=== PATIENT | male | born 1945 | race Caucasian/White ===

== ENCOUNTER 2016-09-05 20:17 | Inpatient (IN) | payer OTHER, BC ==
--- NOTE | 2016-09-05 20:38 | CPEKG ---
Heart Rate: 132 RR Interval: 455 P-R Interval: 136 QRSD Interval: 88 QT Interval: 332 QTC Interval: 492 P [place]: 269 QRS [place]: -19 T Wave [place]: 93 EKG Severity - ABNORMAL ECG - EKG Impression: ECTOPIC ATRIAL TACHYCARDIA EKG Impression: PROBABLE LVH WITH SECONDARY REPOL ABNRM EKG Impression: BORDERLINE INFERIOR Q WAVES EKG Impression: BORDERLINE PROLONGED QT INTERVAL Electronically Signed By: Hipolito Arzate 05-Sep-2016 23:54:56
[2016-09-05 20:51] LABS: % IMMATURE GRANULYOCYTES 0.9 % (0.0-1.1); ABSOLUTE IMMATURE GRANULOCYTES 0.07 10^3/uL (0.00-0.10); ADD DIFF? NO; ADD MORPH? NO; ADD SCAN? NO; ATYPICAL LYMPHOCYTE FLAG 20 (0-99); FRAGMENT RBC FLAG 0 (0-99); HEMATOCRIT 28.8 % (40.0-51.0); HEMOGLOBIN 9.9 g/dL (13.7-17.5); LEFT SHIFT FLG 10 (0-99); LIPEMIA HEMOLYSIS FLAG 90 (0-99); MEAN CELL HEMOGLOBIN 29.8 pg (27.9-34.1); MEAN CELL HEMOGLOBIN CONCENTR. 34.4 g/dL (32.4-36.7); MEAN CELL VOLUME 86.7 fL (81.5-99.8); MEAN PLATELET VOLUME 9.3 fL (8.7-11.7); PLATELET CLUMPS FLAG 0 (0-99); PLATELET COUNT 159 10^3/uL (150-400); RED BLOOD CELL COUNT 3.32 10^6/uL (4.40-6.38); RED CELL DISTRIBUTION WIDTH 18.7 % (11.5-15.2)
[2016-09-05] MEDS ORDERED: ONDANSETRON 4 MG/2 ML VIAL IVP ONE (20:53)
[2016-09-05] MEDS ORDERED: ONDANSETRON 4 MG/2 ML VIAL ONE (20:54)
[2016-09-05 20:58] LABS: ANION GAP 15 mEq/L (8-16); CALCIUM 8.4 mg/dL (8.5-10.4); CARBON DIOXIDE 18 mEq/l (22-31); CHLORIDE 103 mEq/L (97-110); CREATININE 1.4 mg/dL (0.7-1.3); GLOMERULAR FILTRATION RATE 50; GLUCOSE 221 mg/dL (70-100); POTASSIUM 4.6 mEq/L (3.5-5.2); SODIUM 136 mEq/L (134-144)
[2016-09-05] MEDS ORDERED: NS 1,000 ML IV ONE ×2 (20:58→21:15)
--- NOTE | 2016-09-05 20:58 | EDPHY ---
[id number] Vaccine: Yes Current Tetanus Diphtheria and Acellular Pertussis (TDAP): Yes Tetanus Vaccine Date: less than 1 year ago - Medical/Surgical History Hx Asthma: No Hx Chronic Respiratory Disease: No Hx Diabetes: Yes Hx Cardiac Disease: No Hx Renal Disease: No Hx Cirrhosis: No Hx Alcoholism: No Hx HIV/AIDS: No Hx Splenectomy or Spleen Trauma: No Other PMH: DIABETES, PROSTATE CA>HIP. HAND-ORTHO, L KIDNEY STENT, DDD C6 & mid back, R eye cateract - Social History Smoking Status: Never smoked HPI/ROS: CHIEF COMPLAINT: Weakness, shortness of breath HISTORY OF PRESENT ILLNESS: increasing weakness and shortness of breath over the past 2 days. No chest pain. No cough. No fever. No abdominal complaints. Feeling very weak and having difficulty ambulating short distances. No lower extremity erythema, edema or pain. No history of venous thrombolic event, but the patient does have cancer current therapy for prostate with mets to the hip. Also complaining of left hip pain as he has not had his pain medication this evening. No nausea or vomiting. No fever or chills. No headache or dizziness. No back pain. No urinary complaints. No other associated complaints or modifying factors REVIEW OF SYSTEMS: Ten systems reviewed and are negative unless otherwise noted in the HPI EXAMINATION General Appearance: Alert, acutely ill but in no distress Head: normocephalic, atraumatic Eyes: Pupils equal and round, no conjunctival pallor or injection ENT, Mouth: Mucous membranes moist Neck: Normal inspection, supple, non-tender Respiratory: Lungs are clear to auscultation Cardiovascular: tachycardic rate but regular rhythm Gastrointestinal: Abdomen is soft and nontender Back: non-tender, no bony abnormalities Neurological: A&O, nonfocal, normal gait Skin: Warm and dry, no rash Extremities: mild tenderness to the left hip. No edema. No evidence of DVT. Psychiatric: Mood and affect normal Differential Diagnoses: 1. Sepsis 2. PE 3. pneumonia 4. Bronchitis MDM: 20:57 Shortness of breath with tachycardia and tachypnea and ill-appearing patient. He is in no distress, but he is obviously in pain. He does meet SIRS criteria, thus we have ordered a sepsis workup as well as a CT scan of the chest to rule out PE. There is no hypotension or hypoxia. 21:15 A blood gas was performed immediately, the patient has been taken CT scan and has returned. We are awaiting the report. 21:45 Spoke with the radiologist who informed me that there is no evidence of PE. There is evidence of subacute right-sided rib fractures which the patient has known about for years. There is also a noncalcified right middle lobe nodule, which they also normal. There is also thoracic metastases which they also know about. No acute findings including no pneumonia, pleural effusion or any other acute abnormalities as noted by the radiologist. He remains hemodynamically stable with some improvement of his heart rate with IV fluid and pain medication. He does feel better by his own admission. EKG Rate is 132 beats per minute, sinus tachycardia. No ST depressions or elevations. T-wave inversions only in aVL and AVR. P are 136, QTC 432, normal axis. No acute ischemia. Repeat EKG at 10:36 p.m.. Rate is 72 beats per minute, normal sinus rhythm. P are 152, QTC 452. two is inverted only in AVR and V1. No ST depression or elevation. Borderline inferior Q-waves. No acute ischemia 22:54 patient is feeling better and remains hemodynamically stable but has returned to a tachycardic rate. Upon reexamination of the previous EKGs, it is apparent that the patient is likely in atrial tachycardia without hypotension. He remains awake and alert and conversing appropriately. He also is complaining of persistent left hip pain despite IV pain medication. I have discussed all these findings with the hospitalist, and she will admit the patient to PCU. She does recommend a left hip x-ray which we will order due to the possibility of pathologic fracture. I discussed all this with the patient and his spouse at bedside, and they are comfortable with this plan. X-ray of the hip will be performed in the emergency department prior to admission. (Manan Blum) Constitutional: Initial Vital Signs Temperature (C) 36.1 C 09/05/16 20:20 Heart Rate 134 H 09/05/16 20:20 Respiratory Rate 20 09/05/16 20:20 Blood Pressure 152/93 H 09/05/16 20:20 O2 Sat (%) 99 09/05/16 20:20 O2 Delivery Mode Nasal Cannula O2 (L/minute) 2 Allergies/Adverse Reactions: No Known Allergies Allergy (Unverified 09/05/16 20:22) Home Medications: Medication Instructions Recorded Aspirin [Aspirin 81mg (*)] 81 mg PO HS 11/23/13 Cholecalciferol Vit D3 [Vitamin D3 1,000 units PO DAILY 11/23/13 (*)] Cyanocobalamin [Vitamin B12 (*)] 100 mcg PO DAILY 11/23/13 Degarelix Acetate [Firmagon] 0 mg SQ .[id number] #0 11/23/13 Glucosamine Sulfate [Glucosamine 500 mg PO DAILY 11/23/13 Sulfate 500 MG (*)] Multivitamins [Multivitamin (*)] 1 each PO DAILY 11/23/13 Omeprazole Magnesium [Prilosec Otc] 20 mg PO DAILY 11/23/13 Acetaminophen/Codeine 300/30Mg 1 - 2 each PO Q4 09/06/16 [Tylenol #3 (*)] Amitriptyline HCl [Elavil 50 mg 25 mg PO HS 09/06/16 (*)] Atorvastatin Calcium [Lipitor 40 40 mg PO HS 09/06/16 mg (*)] Enzalutamide [Xtandi] 160 mg PO DAILY 09/06/16 Insulin Glargine [Lantus 100 50 units SC HS 09/06/16 UNITS/ML (*)] Lisinopril [Zestril 5 mg (*)] 5 mg PO HS 09/06/16 Metoprolol Succinate Xr [Toprol Xl 25 mg PO HS 09/06/16 25 mg (*)] Vitamin D Shot 0 mg SQ .[id number] 09/06/16 Medical Decision Making ED Course/Re-evaluation: 2314: I did see and evaluate this patient is resting comfortably. Does have intermittent episodes tachycardia appears to be atrial tachycardia on his EKG. At times he is in the 70s and other times in the 130s. He is hemodynamically stable with no chest pain. He did have an elevated D-dimer greater than 20, his CT angiogram did not show pulmonary embolism. Troponin is negative. He is resting comfortably. He is getting an x-ray of his hip to rule out pathological fracture given ongoing hip pain. Patient be admitted to the hospital for pain control, atrial tachycardia observation. (Hipolito rAzate) - Data Points Laboratory Results: Laboratory Results 09/05/16 20:37 09/05/16 20:37 Medications Given: Discontinued Medications Hydromorphone HCl (Dilaudid) 1 mg IVP EDNOW ONE Stop: 09/05/16 21:39 Last Admin: 09/05/16 21:42 Dose: 1 mg Hydromorphone HCl (Dilaudid) 1 mg IVP EDNOW ONE Stop: 09/05/16 22:34 Last Admin: 09/05/16 22:45 Dose: 1 mg Sodium Chloride (Ns) 1,000 mls @ 0 mls/hr IV ONCE ONE PRN Reason: Wide Open Stop: 09/05/16 20:59 Last Admin: 09/05/16 21:39 Dose: 1,000 mls Sodium Chloride (Ns) 1,000 mls @ 0 mls/hr IV ONCE ONE PRN Reason: Wide Open Stop: 09/05/16 21:16 Last Admin: 09/05/16 21:49 Dose: 1,000 mls Morphine Sulfate (Morphine) 4 mg IVP EDNOW ONE Stop: 09/05/16 20:54 Last Admin: 09/05/16 21:15 Dose: 4 mg Ondansetron HCl (Zofran) 4 mg IVP EDNOW ONE Stop: 09/05/16 20:54 Last Admin: 09/05/16 21:15 Dose: 4 mg Departure - Departure Disposition: [facility] Acute Clinical Impression: Atrial tachycardia, Bony metastasis, Weakness Chronic pain Qualifiers: Chronic pain type: chronic pain syndrome Qualifier Code: (G89.4) Chronic pain syndrome Condition: Fair
[2016-09-05 21:00] LABS: INR 1.19 (0.83-1.16); PROTIME(PATIENT) 15.1 SEC (12.0-15.0)
[2016-09-05 21:09] LABS: TROPONIN I < 0.012 ng/mL (0-0.034)
[2016-09-05] MEDS ORDERED: IOPAMIDOL (ISOVUE 370) 100 ML BTL IV ONE (21:14)
[2016-09-05 21:20] LABS: BILIRUBIN,TOTAL 0.9 mg/dL (0.1-1.4)
[2016-09-05] MEDS ORDERED: HYDROmorphONE/DILAUDID 1 MG/ML SYR ONE (21:38)
[2016-09-05] MEDS ORDERED: HYDROmorphONE/DILAUDID 1 MG/ML SYR IVP ONE ×2 (21:38→22:33)
--- NOTE | 2016-09-05 21:39 | DX ---
PA and Lateral Chest September 05, 2016 Indication: Shortness of breath. Comparison: Portable chest dated November 30, 2013. Findings: The lungs are well-aerated and clear. Heart size is normal. No pneumothorax, pulmonary kristina a, or consolidation. Heart size is normal. No pleural effusion. Mild multilevel degenerative disk dis ease. Impression: Clear lungs. No acute process.
--- NOTE | 2016-09-05 22:07 | CT ---
CT Chest Angiogram - September 05, 2016 Indication: Chest pain. History of prostate cancer. Technique: Thinly collimated multidetector helical CT imaging was performed through the chest while 90 mL of Isovue-370 were injected intravenously without complication. The images were then transferr ed to an independent workstation where multiplanar reconstructions were performed. Dose reduction gary hniques were utilized. Comparison: Two-view chest dated September 05, 2016. Findings: CT Chest Angiogram: The pulmonary arterial system is well opacified. No intraluminal filling defect s to suggest acute or chronic thrombopulmonary embolic disease. The thoracic aorta is normal in miley pratik with minimal calcified plaque. Stigmata of previous open heart surgery consists of intact midline sternal wires and features of coronary artery bypass grafting. CT Chest: The lungs are hypoventilated with mild diffuse peribronchial thickening. No airspace consol idation or edema. A 5-mm noncalcified round pulmonary nodule in the lateral segment right middle lobe is present on image 89 of series 6. No other pulmonary nodule. The heart size is normal. No pericard ial or pleural effusion. Numerous sclerotic bone lesions are present throughout bilateral shoulder girdles, ribs, and diffusel y throughout the thoracic spine. Subacute right 5th, 6th, 7th, 8th, and 9th rib fractures have healin g callus. Minimal compression deformities of the T5 and C6 vertebral bodies appear old or subacute. Impression: 1. No evidence of thrombopulmonary embolic disease. 2. Diffuse sclerotic lesions throughout the shoulder girdles, spine, and ribs are highly suspicious f or metastatic prostate carcinoma. 3. Subacute pathologic right 5th through 9th rib fractures. 4. 5-mm indeterminate noncalcified right middle lobe pulmonary nodule. 5. Mild airways disease. No acute pneumonia or edema. 6. Stigmata of previous coronary artery bypass grafting. Comment: Results were called to Dr. Manan Blum, at 9:55 p.m. on September 05, 2016.
--- NOTE | 2016-09-05 22:38 | CPEKG ---
Heart Rate: 72 RR Interval: 833 P-R Interval: 152 QRSD Interval: 96 QT Interval: 452 QTC Interval: 495 P [place]: 69 QRS [place]: 0 T Wave [place]: 74 EKG Severity - ABNORMAL ECG - EKG Impression: SINUS RHYTHM EKG Impression: PROBABLE LEFT ATRIAL ABNORMALITY EKG Impression: BORDERLINE INFERIOR Q WAVES EKG Impression: BORDERLINE R WAVE PROGRESSION, ANTERIOR LEADS EKG Impression: BORDERLINE PROLONGED QT INTERVAL Electronically Signed By: Hipolito Arzate 05-Sep-2016 23:54:56
--- NOTE | 2016-09-05 23:53 | DX ---
Right Hip, Two Views September 05, 2016 Indication: Pain. History of prostate cancer. Technique: AP and frog-leg lateral views. Comparison: Left hip series dated November 17, 2012. Findings: Numerous round sclerotic lesions have developed throughout the pelvis and bilateral proxima l femurs since November 2012. No pathologic fracture. Minimal symmetric hip osteoarthritis has not signi ficantly changed. Impression: 1. New diffuse sclerotic bone disease, likely metastatic prostate adenocarcinoma. 2. No evidence of pathologic fracture.
[2016-09-06] MEDS ORDERED: HYDROmorphONE/DILAUDID 1 MG/ML SYR IVP PRN (02:40)
[2016-09-06] MEDS ORDERED: ONDANSETRON DISINTEGRATING 4 MG TAB PO PRN (02:40)
[2016-09-06] MEDS ORDERED: ONDANSETRON 4 MG/2 ML VIAL IVP PRN (02:40)
[2016-09-06] MEDS: HYDROCODONE/APAP 5/325 TAB PO PRN ×3 (04:11→11:53)
[2016-09-06 05:02] LABS: % IMMATURE GRANULYOCYTES 0.8 % (0.0-1.1); ABSOLUTE IMMATURE GRANULOCYTES 0.05 10^3/uL (0.00-0.10); ADD DIFF? NO; ADD MORPH? NO; ADD SCAN? NO; ATYPICAL LYMPHOCYTE FLAG 10 (0-99); FRAGMENT RBC FLAG 0 (0-99); HEMATOCRIT 24.3 % (40.0-51.0); HEMOGLOBIN 8.2 g/dL (13.7-17.5); LEFT SHIFT FLG 10 (0-99); LIPEMIA HEMOLYSIS FLAG 80 (0-99); MEAN CELL HEMOGLOBIN 30.4 pg (27.9-34.1); MEAN CELL HEMOGLOBIN CONCENTR. 33.7 g/dL (32.4-36.7); MEAN PLATELET VOLUME 9.4 fL (8.7-11.7); PLATELET CLUMPS FLAG 0 (0-99); PLATELET COUNT 122 10^3/uL (150-400); RED CELL DISTRIBUTION WIDTH 18.9 % (11.5-15.2)
[2016-09-06 05:19] LABS: ANION GAP 8 mEq/L (8-16); CALCIUM 7.6 mg/dL (8.5-10.4); CARBON DIOXIDE 23 mEq/l (22-31); CHLORIDE 108 mEq/L (97-110); CREATININE 1.3 mg/dL (0.7-1.3); GLOMERULAR FILTRATION RATE 55; GLUCOSE 117 mg/dL (70-100); MAGNESIUM 1.9 mg/dL (1.6-2.3); SODIUM 139 mEq/L (134-144)
[2016-09-06 05:27] LABS: TROPONIN I 0.019 ng/mL (0-0.034)
--- NOTE | 2016-09-06 06:47 | PDGENHP ---
History and Physical - Chief Complaint l hip pain - History of Present Illness Patient is a 71-year-old man with a history of CAD s/p CABG, DM 2 on insulin, prostate cancer with bony mets who presents to the ED complaining of generalized weakness and fatigue over the past 6 weeks and increased pain at the left hip. In May patient was initiated on chemo or radiation therapy for treatment of his metastatic prostate cancer. Since then patient has had increased fatigue and generalized weakness. In mid July he began experiencing increasing left hip pain, was initiated on Tylenol # 3 for this, but patient states presents today complaining of increased pain not improved with this. In addition he is complaining of constipation due to the T#3. With these symptoms patient is also reporting increasing dyspnea with movement or exertion, he states at baseline he had been able to walk around his neighborhood , but now feels short of breath walking within his home. He is not sure if this is due to increase in pain or underlying lung/cardiac disease. He reports prior history of congestive heart failure, but this had resolved with medical management after his CABG surgery in 2013. He denies any obvious fevers, chills , cough, congestion or nausea, vomiting. On the day of presentation patient states was walking around his apartment and slipped and tripped on his dogs bed, landing on his left side onto the mattress of of the bed. He did not hit his head and was able to get up without difficulty. On arrival to the ED patient was afebrile hemodynamically stable. Labs revealed no leukocytosis, mild anemia, elevated BUN and creatinine and negative troponin. CT angio chest was obtained to rule out P, was negative for PE. X- ray of the to left hip was obtained, revealed bony sclerosis consistent with metastatic disease, but no acute pathologic fracture. While being evaluated in the ED patient became tachycardic, EKG reveals an atrial tachycardia. This returned to sinus rhythm without intervention. History Information - Allergies/Home Medication List Allergies/Adverse Reactions: No Known Allergies Allergy (Unverified 09/05/16 20:22) Home Medications: Acetaminophen with Codeine [Tylenol #4 (RX)] 1 tab PO HS 11/23/13 [Last Taken ] Amitriptyline HCl [Elavil] 25 mg PO HS 11/23/13 [Last Taken 11/21/13] Aspirin [Aspirin 81mg (*)] 81 mg PO HS 11/23/13 [Last Taken 11/22/13] Cholecalciferol Vit D3 [Vitamin D3 (*)] 1,000 units PO DAILY 11/23/13 [Last Taken 11/22/13 08:00] Cyanocobalamin [Vitamin B12 (*)] 100 mcg PO DAILY 11/23/13 [Last Taken 11/22/13 08:00] Glucosamine Sulfate [Glucosamine Sulfate 500 MG (*)] 500 mg PO DAILY 11/23/13 [ Last Taken 11/22/13 08:00] Lupron Injection 1 saji SQ .[id number] 11/23/13 [Last Taken 10/04/13] Multivitamins [Multivitamin (*)] 1 each PO DAILY 11/23/13 [Last Taken 11/22/13 08:00] Naproxen Sodium [Aleve 220 MG (*)] 220 mg PO DAILY 11/23/13 [Last Taken 08:00] [place]-3 Fatty Acids [Fish Oil 1000 mg (*)] 1,000 mg PO DAILY 11/23/13 [Last Taken 11/22/13 08:00] Omeprazole Magnesium [Prilosec Otc] 20 mg PO DAILY 11/23/13 [Last Taken 08:00] I have personally reviewed and updated: family history, medical history, social history, surgical history - Past Medical History Additional medical history: CAD s/p 3 vessel CABG 2013. Prostate cancer with bony mets, recently initiated on chemo/radiation therapy. DM type 2 on insulin - Surgical History Additional surgical history: CABG. partial prostate resection. finger injury repair. 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 Lives with his , splits time between [place] and [place] (where pt is originally from) Review of Systems ROS: 10pt was reviewed & negative except for what was stated in HPI & below Physical Exam Temp Pulse Resp BP Pulse Ox 36.7 C 68 16 123/64 H 95 09/06/16 04:00 09/06/16 04:00 09/06/16 04:00 09/06/16 04:00 09/06/16 04:00 O2 (L/minute) 2 Constitutional: no apparent distress, appears nourished, not in pain Eyes: PERRL, anicteric sclera, EOMI Ears, Nose, Mouth, Throat: moist mucous membranes, hearing normal, ears appear normal, no oral mucosal ulcers Cardiovascular: regular rate and rhythym, no murmur, rub, or gallop, pulses symmetric bilaterally, No JVD, No edema Peripheral Pulses: 2+: dorsalis-pedis (R), dorsalis-pedis (L) Respiratory: no respiratory distress, no rales or rhonchi, clear to auscultation Gastrointestinal: normoactive bowel sounds, soft, non-tender abdomen, no palpable masses Genitourinary: no bladder fullness, no bladder tenderness Skin: warm, normal color, no rashes or abrasions, no fluctuance, No mottled Musculoskeletal: full muscle strength, no muscle tenderness, pain with ROM (L hip) Neurologic: AAOx3, sensation intact bilaterally, CN II-XII Intact, No weakness, No numbness Psychiatric: interacting appropriately, not anxious, not encephalopathic, thought process linear Lab Data & Imaging Review 09/06/16 04:09 09/06/16 04:09 WBC 6.47 10^3/uL (3.80-9.50) 09/06/16 04:09 RBC 2.70 10^6/uL (4.40-6.38) L 09/06/16 04:09 Hgb 8.2 g/dL (13.7-17.5) L 09/06/16 04:09 Hct 24.3 % (40.0-51.0) L 09/06/16 04:09 MCV 90.0 fL (81.5-99.8) 09/06/16 04:09 MCH 30.4 pg (27.9-34.1) 09/06/16 04:09 MCHC 33.7 g/dL (32.4-36.7) 09/06/16 04:09 RDW 18.9 % (11.5-15.2) H 09/06/16 04:09 Plt Count 122 10^3/uL (150-400) L 09/06/16 04:09 MPV 9.4 fL (8.7-11.7) 09/06/16 04:09 Neut % (Auto) 73.7 % (39.3-74.2) 09/06/16 04:09 Lymph % (Auto) 13.0 % (15.0-45.0) L 09/06/16 04:09 Power % (Auto) 11.0 % (4.5-13.0) 09/06/16 04:09 Eos % (Auto) 1.2 % (0.6-7.6) 09/06/16 04:09 Baso % (Auto) 0.3 % (0.3-1.7) 09/06/16 04:09 Nucleat RBC Rel Count 0.0 % (0.0-0.2) 09/06/16 04:09 Absolute Neuts (auto) 4.77 10^3/uL (1.70-6.50) 09/06/16 04:09 Absolute Lymphs (auto) 0.84 10^3/uL (1.00-3.00) L 09/06/16 04:09 Absolute Monos (auto) 0.71 10^3/uL (0.30-0.80) 09/06/16 04:09 Absolute Eos (auto) 0.08 10^3/uL (0.03-0.40) 09/06/16 04:09 Absolute Basos (auto) 0.02 10^3/uL (0.02-0.10) 09/06/16 04:09 Absolute Nucleated RBC 0.00 10^3/uL (0-0.01) 09/06/16 04:09 Immature Gran % 0.8 % (0.0-1.1) 09/06/16 04:09 Immature Gran # 0.05 10^3/uL (0.00-0.10) 09/06/16 04:09 PT 15.1 SEC (12.0-15.0) H 09/05/16 20:37 INR 1.19 (0.83-1.16) H 09/05/16 20:37 APTT 31.0 SEC (23.0-38.0) 09/05/16 20:37 D-Dimer > 20.00 ug/mLFEU (0.00-0.50) H 09/05/16 20:37 VBG Lactic Acid 1.6 mmol/L (0.7-2.1) 09/05/16 20:37 Sodium 139 mEq/L (134-144) 09/06/16 04:09 Potassium 5.0 mEq/L (3.5-5.2) 09/06/16 04:09 Chloride 108 mEq/L (97-110) 09/06/16 04:09 Carbon Dioxide 23 mEq/l (22-31) 09/06/16 04:09 Anion Gap 8 mEq/L (8-16) 09/06/16 04:09 BUN 26 mg/dL (7-23) H 09/06/16 04:09 Creatinine 1.3 mg/dL (0.7-1.3) 09/06/16 04:09 Estimated GFR 55 09/06/16 04:09 Glucose 117 mg/dL (70-100) H 09/06/16 04:09 Calcium 7.6 mg/dL (8.5-10.4) L 09/06/16 04:09 Magnesium 1.9 mg/dL (1.6-2.3) 09/06/16 04:09 Total Bilirubin 0.9 mg/dL (0.1-1.4) 09/05/16 20:37 Troponin I 0.019 ng/mL (0-0.034) 09/06/16 04:09 NT-Pro-B Natriuret Pep 2350 pg/mL (0-125) H 09/06/16 04:09 TSH 1.310 uIU/mL (0.465-4.680) 09/06/16 04:09 Influenza Typ A,B (DFA) NEGATIVE FOR FLU (NEGATIVE) 09/05/16 21:18 Visualized and Interpreted Chest x-ray results: Yes Chest X-Ray results: no infiltrate, normal Visualized and Interpreted imaging results: Yes Interpretation: Ct angio chest: multiple scattered areas of bony sclerosis c/w metastatic disease; neg for pulmonary embolis. L hip x-ray: no acute fracture, sclerosis Visualized and Interpreted EKG results: Yes EKG additional interpertation: First: Atrial tachycardia at 132 beats per minute; no obvious ST T wave changes. Repeat: Normal sinus rhythm, poor R- wave progression, no ST T wave changes Assessment & Plan Assessment: Patient is a 71-year-old male with history of CAD, dm 2, metastatic prostate cancer who presents to the ED with increasing generalized fatigued, dyspnea and pain. Plan: # generalized fatigue and increasing dyspnea on exertion Could be related to recent initiation on chemo/radiation therapy in May of 2016. Given patient's prior cardiac history will also rule out cardiac etiology including new onset CHF or ischemia. CT angio has ruled out pulmonary embolism. - trend troponins, repeat ekgs - check TTE to r/o CHF # atrial tachycardia Pt denies any prior history of SVT/arrhythmia. Appears when patient is in acute pain, will control pain and consider cardiology consult. No indication to start rate controlling med at this time, at patient largely rate controlled, when pain is controlled. # prostate ca with bony mets, in acute pain Patient with extensive bony metastatic prostate cancer. Pain not responding to Tylenol 3 at home. Imaging have ruled out acute fractures, will cont with pain control and also initiate standing bowel regimen. - norco, dilaudid prn - standing senna/colace/miralax # DM2 Normal glucose on presentation, will confirm and cont home insulin regimen. Lispro sliding scale coverage # CAD Pt denies chest pain, no evidence of ischemia on EKG and initial trop is negative. Will r/o ACS and cont home med regimen. # dispo: admit to inpt service for > 2 [place] stay # gen: cardiac diet DVT ppx: lovenox Full code
[2016-09-06] MEDS: ENOXAPARIN 40 MG/0.4 ML SYR SC SCH (09:17)
--- NOTE | 2016-09-06 11:28 | ECHO ---
[id number] + + [id number] : : [place] [address] : : [phone] + Adult Echocardiographic Report + -------+ :Name: INGRAM TESS PStudy Date: 09/06/2016 08:14 AM : : Hospital Admission Number: [id number] Locati on: 210: :: 1945 Gender: Male Height: 73 in : :Age: 71 yrs Race: WH Weight: 213 lb : :Reason For Study: increasing dyspnea on exertion : : BSA: 2.2 meter s2 : :History: Hx of Bipass : + -------+ MMode/2D Measurements & Calculations IVSd: 1.5 cm LVIDd: 5.1 cm FS: 31.7 % LVOT diam: 2.2 cm LVPWd: 1.4 cm LVIDs: 3.5 cm EDV(Teich): 125.4 ml LVOT area: 3.6 cm2 ESV(Teich): 51.0 ml EF(Teich): 59.4 % Normal Measurement Values: + + :LVIDd (3.5-5.7cm) IVSd (0.6-1.1cm) LVPWd (0.6-1.1cm) Aortic Root (2.0-3.7cm)Left Atrium (1.5-4.0cm): :LV Vol(d) (76-115ml) LV Vol(s) (29-48ml) Ejec Fraction (50-65%)PV Wilmar (0.6- 1.2m/s) TV Wilmar (0.4-1.0m/s) : :MV E Wilmar (0.8-1.0m/s)MV A Wilmar (0.3-1.0m/s)LVOT Iwlmar (0.7-1.2m/s) Asc Ao Wilmar ( 0.9-1.8m/s) : + + Doppler Measurements & Calculations MV E max wilmar: MV V2 max: Ao mean PG: LV V1 mean P.6 cm/sec 118.8 cm/sec 5.4 mmHg 1.7 mmHg MV A max wilmar: MV max PG: Ao V2 mean: LV V1 mean: 107.6 cm/sec 5.6 mmHg 107.1 cm/sec 60.1 cm/sec MV E/A: 1.0 MV V2 mean: Ao V2 VTI: 34.7 cm LV V1 VTI: 20.7 cm MV dec time: 75.4 cm/sec DAVID(I,D): 2.2 cm2 0.16 sec MV mean P.5 mmHg MV V2 VTI: 44.9 cm MVA(VTI): 1.7 cm2 SV(LVOT): 75.6 ml PA V2 max: TR max wilmar: 114.0 cm/sec 199.1 cm/sec PA max PG: TR max P.2 mmHg 15.9 mmHg RAP systole: 10.0 mmHg RVSP(TR): 25.9 mmHg Left Ventricle The left ventricle is normal in size. There is mild concentric left ventricular hypertrophy. Left ventricular systolic function is low normal. Ejection Fraction = 50-55%. Right Ventricle The right ventricle is normal in size and function. Atria The left atrium is mildly dilated. Right atrium not well visualized. Mitral Valve The mitral valve is normal in structure and function. There is no mitral valve stenosis. There is trace mitral regurgitation. Tricuspid Valve The tricuspid valve is normal in structure and function. There is no tricuspid stenosis. There is trace tricuspid regurgitation. Right ventricular systolic pressure is normal. Aortic Valve The aortic valve is normal in structure and function. There is no aortic stenosis. There is no aortic insufficiency. Pulmonic Valve The pulmonic valve is normal in structure and function. There is no pulmonic valvular stenosis. Trace pulmonic valvular regurgitation. Great Vessels The aortic root is normal size. Pericardium/Pleural There is a fat pad seen. trivial pericardial effusion. Conclusion A complete two-dimensional transthoracic echocardiogram was performed (2D, M-mode, Doppler and color flow Doppler). The study was technically difficult. Left ventricular systolic function is low normal. Ejection Fraction = 50-55%. There is mild concentric left ventricular hypertrophy. The left atrium is mildly dilated. Right atrium not well visualized. There is trace mitral regurgitation. There is trace tricuspid regurgitation. Right ventricular systolic pressure is normal. The aortic valve is normal in structure and function. Trace pulmonic valvular regurgitation. trivial pericardial effusion. Compared with 11/23/2013, LVEF has improved. Regional wall motion abnormality not appreciated on current study Final Reading Physician: Dr Amy Ardon electronically signed on 09/06/2016 11:27 AM Ordering Physician: Marlena Eli Performed By: Irma Orta
[2016-09-06] MEDS: ACETAMINOPHEN 325 MG TAB PO PRN (13:27)
[2016-09-06] MEDS: Enzalutamide [Xtandi] 160 MG PO SCH (15:41)
[2016-09-06] MEDS: morphINE SR 15 MG TAB PO SCH ×2 (15:41→19:57)
--- NOTE | 2016-09-06 15:49 | HOSPPROG ---
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 no atrial tach (interp by me). cxr: no chf (interp by me) Objective: Vital Signs Temp Pulse Resp BP Pulse Ox 36.5 C 60 16 133/57 H 98 09/06/16 12:23 09/06/16 12:23 09/06/16 12:23 09/06/16 12:23 09/06/16 12:23 Laboratory Results 09/06/16 04:09 09/06/16 04:09 09/05/16 09/06/16 09/07/16 05:59 05:59 05:59 Intake Total 2200 Balance 2200 PT 15.1 SEC (12.0-15.0) H 09/05/16 20:37 INR 1.19 (0.83-1.16) H 09/05/16 20:37 - Physical Exam Constitutional: no apparent distress, appears nourished Eyes: PERRL, anicteric sclera Ears, Nose, Mouth, Throat: moist mucous membranes, hearing normal Cardiovascular: regular rate and rhythym, no murmur, rub, or gallop Respiratory: no respiratory distress, no rales or rhonchi Gastrointestinal: normoactive bowel sounds, soft, non-tender abdomen Genitourinary: No whitaker in urethra Skin: warm, normal color Musculoskeletal: full muscle strength, no muscle tenderness Neurologic: AAOx3 ICD10 Worksheet Patient Problems: Problems Problem Status Diagnosed Acute CHF Acute CAD (coronary artery disease) Acute Chronic Disease Mgmt/Transitional Care Acute Diabetes mellitus type II, uncontrolled Acute NSTEMI (non-ST elevated myocardial infarction) Acute
[2016-09-06] MEDS: POLYETHYLENE GLYCOL 3350 17 GM PKT PO SCH (17:41)
[2016-09-06] MEDS: ASPIRIN 81 MG CHEWABLE TAB PO SCH (19:57)
[2016-09-06] MEDS: LISINOPRIL 5 MG TAB PO SCH (19:58)
[2016-09-06] MEDS: ATORVASTATIN CALCIUM 40 MG TAB PO SCH (19:58)
[2016-09-06] MEDS: INSULIN GLARGINE 100 UNITS/ML SYRINGE SC SCH (20:00)
[2016-09-06] MEDS ORDERED: AMITRIPTYLINE HCL 50 MG TAB PO SCH (21:00)
[2016-09-06] MEDS ORDERED: METOPROLOL SUCCINATE XR 25 MG TAB PO SCH (21:00)
[2016-09-07] MEDS: ENOXAPARIN 40 MG/0.4 ML SYR SC SCH (09:21)
[2016-09-07] MEDS: POLYETHYLENE GLYCOL 3350 17 GM PKT PO SCH (09:28)
[2016-09-07] MEDS: CYANO/VITAMIN B12 100 MCG TAB PO SCH (09:29)
[2016-09-07] MEDS: Enzalutamide [Xtandi] 160 MG PO SCH (09:29)
[2016-09-07] MEDS: MULTIVITAMINS 1 EACH TAB PO SCH (09:29)
[2016-09-07] MEDS: GLUCOSAMINE SULF 500 MG CAP PO SCH (09:29)
[2016-09-07] MEDS: CHOLECALCIFEROL VIT D3 1,000 UNITS TAB PO SCH (09:29)
[2016-09-07] MEDS: PANTOPRAZOLE SODIUM 40 MG TAB PO SCH (09:29)
[2016-09-07] MEDS: morphINE SR 15 MG TAB PO SCH ×2 (09:34→20:35)
[2016-09-07] MEDS: HYDROCODONE/APAP 5/325 TAB PO PRN ×2 (09:36→13:27)
--- NOTE | 2016-09-07 11:37 | HOSPPROG ---
Hospitalist Progress Note Assessment/Plan: 71 yo M w cad, prostate CA w bony mets admitted w pain, brief run of atrial tachycardia atrial tachycardia: having episodes on monitor increase bb to 50 hs no indication for anticoag incontinence: concerning for metastatic disease MR L spine today check UA pain: start ms contin w msir for breakthrough discussed risks/benefits of residential anticoag DM: continue lantus cad: neg trop proph: add lmwh dispo: inpt Subjective: multiple episodes symptomless urinary incontinence last clarissa. notes an episode of fecal incontinence last week. tele: atrial tachycardia (interp by me). case d/w dr hensley Objective: Vital Signs Temp Pulse Resp BP Pulse Ox 36.8 C 71 12 163/71 H 93 09/07/16 08:00 09/07/16 08:00 09/07/16 08:00 09/07/16 08:00 09/07/16 08:00 Laboratory Results 09/06/16 04:09 09/06/16 04:09 09/06/16 09/07/16 09/08/16 05:59 05:59 05:59 Intake Total 2200 1070 Balance 2200 1070 PT 15.1 SEC (12.0-15.0) H 09/05/16 20:37 INR 1.19 (0.83-1.16) H 09/05/16 20:37 - Physical Exam Constitutional: no apparent distress, appears nourished Eyes: PERRL, anicteric sclera Ears, Nose, Mouth, Throat: moist mucous membranes, hearing normal Cardiovascular: regular rate and rhythym, no murmur, rub, or gallop Respiratory: no respiratory distress Gastrointestinal: normoactive bowel sounds, soft, non-tender abdomen Genitourinary: No whitaker in urethra Skin: warm, normal color Musculoskeletal: full muscle strength Neurologic: AAOx3 ICD10 Worksheet Patient Problems: Problems Problem Status Diagnosed Atrial tachycardia Acute Bony metastasis Acute Chronic pain Acute Generalized weakness Acute Acute CHF Acute CAD (coronary artery disease) Acute Chronic Disease Mgmt/Transitional Care Acute Diabetes mellitus type II, uncontrolled Acute NSTEMI (non-ST elevated myocardial infarction) Acute
[2016-09-07] MEDS ORDERED: METOPROLOL SUCCINATE XR 25 MG TAB PO SCH (11:43)
[2016-09-07 13:05] LABS: COLOR YELLOW; LEUKOCYTE ESTERASE,URINE NEGATIVE (NEGATIVE); NITRITE,URINE NEGATIVE (NEGATIVE)
--- NOTE | 2016-09-07 16:44 | MR ---
MRI Pelvis, Without and With IV Contrast September 07, 2016 Indication: 71-year-old man with metastatic prostate adenocarcinoma. Evaluate extent of metastatic di sease. Technique: Coronal, sagittal, and axial T2 fat-suppressed, axial, coronal, and sagittal T1, and postc ontrast imaging consists of axial T1 fat-suppressed and coronal T1. 10 mL Gadavist were uneventfully intravenously administered. Comparison: Two-view right hip dated September 05, 2016. Findings: Extensive bone marrow replacing metastatic disease is present throughout the entire sacrum, visualized portion of bilateral iliac wings, and bilateral femoral heads and necks. Metastatic disea se has decreased heterogeneous signal on T1 and heterogeneous, hypervascular enhancement on the postc ontrast imaging. Bilateral nondisplaced sacral fractures course through the anterior cortex superiorl y. The right sacral fracture is best demonstrated on images 9 through 11 of coronal series 13 and the left sacral fracture is best demonstrated on images 5 through 7 of the coronal sequences. No patholo gic fractures through the imaged portions of the iliac wings or femoral necks. Enhancing epidural soft tissue in the central canal posterior to the S1 vertebral body, measuring 2.5 cm craniocaudal x 2.8 x 1 cm axially, results in severe central canal narrowing and extends laterall y through bilateral S1 neural foramen. Eccentric epidural soft tissue slightly more superior, posteri or to the L5 vertebral body extends out the left L5-S1 neural foramen. The posterior wall of the urinary bladder toward the base has mild irregular nodular enhancement whic h extends inferiorly into the prostatectomy bed. Enhancing soft tissue is best demonstrated on images 12 through 17 of the axial T1 postcontrast sequence. A 7 mm round enhancing lymph node is present in the presacral fat on image 15 of the axial T1 post. The axial T2 fat-suppressed imaging reveals mild edema throughout bilateral piriformis, bilateral glu teus medius, and the left gluteus monie muscle groups. No muscle tear or intramuscular fluid collec tion. Small bilateral hip effusions are present. Impression: 1. Extensive metastatic disease throughout the sacrum, imaged portion of the iliac wings, and bilater al femoral necks. 2. Bilateral sacral insufficiency/pathologic fractures. 3. Epidural soft tissue disease resulting in moderate severe central canal narrowing at the S1 level and mild narrowing of the left L5-S1 neural foramen. 4. Suspect local recurrence of prostate adenocarcinoma in the prostatectomy bed involving the posteri or base of the bladder wall.
--- NOTE | 2016-09-07 16:56 | MR ---
MRI Lumbar Spine, Without and With IV Contrast September 07, 2016 Indication: 71-year-old man with incontinence. Suspect cauda equina syndrome. Evaluate extent of meta static prostate adenocarcinoma. Technique: Sagittal T2, T1, and T1 postcontrast with fat suppression, coronal T2, and axial T2, T1, a nd T1 postcontrast. 10 mL of Gadavist were uneventfully intravenously administered. Comparison: MRI of the pelvis performed same time. Findings: Diffusely abnormal bone marrow signal is present throughout the lumbar spine evidenced by l oss of normal T1 hyperintense signal, heterogeneous T2 signal, and diffuse heterogeneous postcontrast enhancement of the vertebral bodies and posterior elements. No acute compression fracture. The conus medullaris resides at T12-L1. No abnormal enhancement of the conus or the leptomeninges. Th e spinal canal is capacious from T11-T12 to the L5 level. Enhancing epidural soft tissue in the spinal canal posterior to the S1 segment, measuring 2.5 cm cran iocaudal x 2.8 x 1.2 cm axially, results in severe central canal narrowing. The enhancing soft tissue extends out bilateral S1 neural foramina and may be contributing to patient's incontinence. Small se cond focus of enhancing epidural soft tissue posterior to the L5 vertebral body courses laterally out the left L5-S1 neural foramen. No acute disk herniation at any level. Mild central canal narrowing is present at T12-L1, L1-L2, L2-L 3, L3-L4 due to diffuse mild disk bulge and facet hypertrophy. Moderate central canal narrowing is present at L4-L5 due to grade 1 anterolisthesis of L4 on L5 and m inimal diffuse disk bulge and facet hypertrophy. Moderate bilateral neural foraminal stenosis is due to facet spurs and grade 1 spondylolisthesis at this level. The coronal T2-weighted imaging reveals severe atrophy of the left kidney and hypertrophy of the righ t kidney. Bilateral ureters are normal caliber. No retroperitoneal mass. The urinary bladder is moder ately distended. Impression: 1. Diffuse metastatic disease throughout the lumbar spine. 2. Severe central canal narrowing at the S1 level due to enhancing epidural soft tissue may be etiolo gy for cauda equina syndrome. The enhancing soft tissue extends out bilateral S1 neural foramina obsc uring the exiting nerve roots. 3. Moderate narrowing of the left L5-S1 neural foramen due to epidural soft tissue at this level. 4. Otherwise widely patent central canal. No involvement of the conus medullaris. 5. No acute compression fracture. 6. Moderate bilateral neural foraminal stenosis at L4-L5 due to facet hypertrophy and grade 1 spondyl olisthesis. Comment: The results were discussed with Dr. Ki Oliver at 4:45 p.m. on September 07, 2016.
--- NOTE | 2016-09-07 18:44 | GCON ---
[f rep st] CONSULTATION CHIEF COMPLAINT: 1. Left hip pain. 2. Metastatic prostate cancer diagnosed in 2011. 3. Lumbar stenosis with 2-day history of urinary incontinence. HISTORY OF PRESENT ILLNESS: The patient is a 71-year-old male with a history of coronary artery disease who had a CABG x3. He has history of diabetes type 2. He is on insulin. He has a history of prostate cancer with widespread metastatic disease that was diagnosed in 2011. He originally was seen back in 2011 with hip pain and did have radiation associated with this. He presented to the emergency department on 09/06/2016 complaining of generalized weakness and fatigue over the past 6 weeks, increasing left hip pain. In May, the patient was initiated on chemo or radiation therapy for treatment of his metastatic prostate cancer. Since then, the patient had increased fatigue, general weakness. In mid July, he began experiencing increasing left hip pain. He was started on Tylenol No. 3 for this. The pain has persisted and worsened since then. He has had an approximately 2-day course of urinary incontinence. He did have some constipation initially due to the Tylenol No. 3. The patient has reported some increasing dyspnea with movement or exertion. He is not sure if this was due to the increase in pain or the underlying lung and cardiac disease history that he has. He does report a prior history of congestive heart failure. This improved after medical management after his CABG surgery in 2013. He denies any recent falls other than one when he was walking around his apartment and slipped and tripped on his dog's bed, landing on the left side of the mattress of the bed. He did not hit his head or have any upper or lower extremity complaints at that time. He does state he has some urinary incontinence. No bowel incontinence. PAST MEDICAL AND SURGICAL HISTORY: 1. Coronary artery disease, status post 3-vessel CABG in 2013. 2. Prostate cancer with bony mets with chemoradiation therapy history. 3. Diabetes type 2, on insulin. 4. Partial prostate resection, cryotherapy. 5. Finger injury repair. 6. Cataract repair bilaterally. MEDICATIONS PRIOR TO ADMISSION: Tylenol with codeine, Elavil, aspirin, vitamin D3, vitamin B12, glucosamine, Lupron, multivitamin, Aleve, fish oil, and Prilosec. ALLERGIES: No known drug allergies. FAMILY HISTORY: 1. Positive for a brother with coronary artery disease. He had a bypass surgery. 2. Alzheimer's. 3. CVA history. SOCIAL HISTORY: Patient has smoked, but in the 60s, and has quit since then. He is . He has no children. He lives in [place], [place], but does have a home that he frequents up here in [place], [place]. He denies any alcohol use. Denies any illicit drug use. REVIEW OF SYSTEMS: Complete review of systems done in conjunction with the above notable for the following. No headache, no diplopia, no blurred vision, no loss of visual field. No hearing loss, tinnitus or vertigo. PULMONARY: The patient denies any cough. Some mild shortness of breath. CARDIAC: No chest pain or pressure. GI: No recent weight loss or gain. No nausea, vomiting, or diarrhea. : No dysuria, hematuria, nocturia, urgency. Does have some incontinence. No frequency. PSYCHIATRIC: No suicidality or homicidality. PHYSICAL EXAMINATION: GENERAL: This is an awake, alert, oriented male, in no acute distress. VITAL SIGNS: Most recent vital signs: Blood pressure 158/62 with a MAP of 94, 21 respiratory rate, 91% on room air. Temperature 36.7. HEENT: Head is normocephalic, atraumatic. Pupils are equal, round, reactive to light. EOMI intact. Full visual gee by confrontation. Ears are patent. Nose is patent. NECK: Soft, supple. No midline tenderness. Full range of motion in flexion, extension, lateral bending, rotation. RESPIRATORY/CARDIAC: Deferred. ABDOMEN: Soft, nontender. No peritoneal signs. RECTAL: The patient denies any numbness or tingling but does state some sensation of burning to the perianal area. Does have poor rectal tone/some numbness. NEURO : Patient is awake, alert, oriented to name, place, location, date, time, and situation. Memory is intact to immediate, past, and current events. Speech: No aphasia, dysarthria, dysphonia. Cranial nerves 2-12 grossly intact. 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 Sensation is grossly intact to upper and lower extremities. Negative straight leg raise. Negative PAULA test. Reflexes of biceps, triceps, brachioradialis, knee jerk, and ankle jerk are 2+/4. Toes are downgoing bilaterally. Gonzalez's negative. Babinski negative. No evidence of clonus. MEDICAL DECISION MAKING/DIAGNOSTIC STUDIES: Laboratory tests obtained 2016 show a white count of 6.47 with an H and H of 8.2 and 24.3. Platelet count of 122. Coags on 09/05/2016 show a PT of 15.1, INR of 1.19, PTT of 31.0, and D-dimer greater than 20. VBG lactic acid was 1.6. Chemistry on 09/06/2016 : Sodium of 139, potassium 5.0, chloride 108, CO2 of 23, BUN 26, creatinine 1.3 , and a glucose of 117. Urine was negative. Influenza was negative. The lumbar spine MRI obtained 09/07/2016 at 11:32 shows diffuse metastatic disease throughout the lumbar spine. The patient has severe central canal narrowing at the S1 level due to an enhancing epidural soft tissue mass which may be the etiology for the cauda equina syndrome. Enhancing soft tissue extends out bilaterally with S1 neural foramen obscuring the exiting nerve roots. Moderate narrowing of the left L5-S1 neural foramen due to the epidural soft tissue at this level. The patient does have a widely patent central canal. No involvement of the conus. Moderate bilateral neural foraminal stenosis L4-5 due to facet hypertrophy and a grade 1 spondylolisthesis. IMPRESSION: 1. Left hip pain. 2. Prostate cancer history with metastatic process diagnosed 2011. 3. History of coronary artery bypass x3 with the use of aspirin. 4. Low back pain, left lower extremity pain, with metastatic process to lumbar spine causing severe central narrowing at the S1 level. Moderate narrowing of the left L5-S1 neural foramen. PLAN/DISCUSSION: The patient is a 71-year-old male who has widespread metastatic prostate cancer that was originally diagnosed in 2011. He has had some hip pain and leg pain that really started in May. He had 15 episodes of radiation to the hip. He has had a 2-day history now of urinary incontinence. The patient was seen and evaluated both by myself and Dr. Samayoa. On his MRI, he does have some severe central canal narrowing at the S1 level and does have moderate narrowing of the left L5-S1 neural foramen. Dr. Samayoa is awake of exam findings did speak with the patient about the possibility of a laminectomy and decompression. He does have some weakness of his left EHL and left dorsiflexion. We did speak about the possibility of trying radiation therapy as well. The patient will get an opinion from Oncology with Dr. Starr, who is present and evaluating the patient as well. The patient elected to think about this overnight, and will give us a decision tomorrow about his treatment plan. All questions and concerns were answered. The patient understands and agrees. /[id number]/MODL MTDD
--- NOTE | 2016-09-07 19:50 | GCON ---
[f rep st] CONSULTATION ONCOLOGY CONSULTATION REFERRING PHYSICIAN: Dr. Oliver REASON FOR CONSULTATION: Metastatic prostate cancer. HISTORY OF PRESENT ILLNESS: Mr. Cooper is a 71-year-old gentleman who is staying locally but lives and receives most of his care outside of [place], [place]. In 2011, while he was visiting here, he slipped and fell in his garage. He had horrible bone pain and x-ray revealed no fracture but metastases. He went back to [place] and had an extensive workup which revealed that he had metastatic prostate cancer. His reports his PSA at that time was 40. He was started on hormone therapy and received cryotherapy to his prostate, and his PSA was down to 0.4. I think he did well for a couple of years and then had progression, so he was started on Xtandi, which he has been on for the last couple of years. About a year ago, he was having signs of progression so he was treated with Provenge, and then he received [place]-223 for 6 cycles, which finished around April or May of this year. He was having increasing pain in his left hip and received radiation to the hip through early July, which significantly alleviated his symptoms. Since around , he has been having more generalized pain and fatigue, although most of his pain has been in the left hip with radiation down his leg. On the day he came into the emergency room, he was in his apartment and tripped onto his dog's bed, landing on his left side. He was having more pain, but he was also having more shortness of breath and dyspnea with exertion. He has a history of coronary artery disease, so he went to the emergency room for evaluation. Pulmonary embolism was ruled out, as well as acute [place]. He was given narcotics for his pain, which significantly helped his pain, but since last night he has been having incontinence of both urine and stool. MRI revealed severe central canal narrowing at S1 due to an epidermal soft tissue mass that could be accounting for the symptoms. It extends out bilaterally into the S1 neural foramina, obscuring the existing nerve roots. He has been seen by Dr. Samayoa of neurosurgery, who has not recommended emergent surgery. PAST MEDICAL HISTORY: Chronic illnesses include: 1. Coronary artery disease, and he has seen Dr. Latif in the past. He underwent 3-vessel CABG in 2013. 2. Type 2 diabetes. 3. Prostate cancer as described in HPI. PAST SURGICAL HISTORY: CABG, finger injury repair, cataract repair. ALLERGIES: No known drug allergies. MEDICATIONS: Home medications include enzalutamide, Lantus insulin, acetaminophen with codeine, cholecalciferol, atorvastatin, aspirin, amitriptyline, lisinopril, glucosamine, B12, vitamin D, Degarelix, multivitamin , metoprolol and omeprazole. FAMILY HISTORY: Noncontributory. SOCIAL HISTORY: Nonsmoker, nondrinker. He is . He splits his time between [place], [place], where he is originally from, and [place]. His grew up in [place]. REVIEW OF SYSTEMS: A 10-point review of systems performed. Pertinent positives in HPI, otherwise negative. PHYSICAL EXAMINATION: VITAL SIGNS: Temperature is 36.7, saturating 91% on room air, pulse 71, blood pressure 158/62. GENERAL: He is an elderly man, no distress. HEENT: Unremarkable. LUNGS: Clear. CARDIAC: Regular without murmur. ABDOMEN: Soft, nontender. MUSCULOSKELETAL: Tender over the S1 area. NEURO: DTRs are decreased bilaterally but equal. He seems to have full sensation without any focal weakness. According to neurosurgery, performed a rectal exam. He has significantly decreased sphincter tone. MRI as per [facility]. Hip x-ray showed sclerotic bone disease but no fracture. Chest CT showed no thromboembolic disease. He had diffuse sclerotic disease. IMPRESSION: 1. Metastatic prostate cancer. 2. Soft tissue mass at S1 causing pain and probably contributing to incontinence. 3. Coronary artery disease. I had a long discussion with the patient and his , and they are leaning against surgery if it is not emergently needed because of his underlying cardiac disease. He also had a fairly good and rapid response to radiation in the past. I think the biggest issue is whether he stays here and receives radiation or goes back to [place]. He was planning to stay for at least another couple of weeks, so I have recommended that we have him meet with radiation oncology and discuss palliative radiation. For senior care issues, his next step is to consider systemic chemotherapy. He has not received Taxotere yet. He does have some concerns about chemotherapy, and I explained to them without considering systemic therapy he will probably continue to develop lesions that could be irradiated but he will progressively get worse with time. At this point, I do not recommend starting chemotherapy yet, but try to get his disease under better control with radiation first and they can either go back to [place] and discuss it with them, or follow up with me later. /[id number]/MODL MTDD
[2016-09-07] MEDS: ASPIRIN 81 MG CHEWABLE TAB PO SCH (20:35)
[2016-09-07] MEDS: METOPROLOL SUCCINATE XR 50 MG TAB PO SCH (20:35)
[2016-09-07] MEDS: ATORVASTATIN CALCIUM 40 MG TAB PO SCH (20:35)
[2016-09-07] MEDS: AMITRIPTYLINE HCL 25 MG TAB PO SCH (20:36)
[2016-09-07] MEDS: LISINOPRIL 5 MG TAB PO SCH (20:36)
[2016-09-07] MEDS: INSULIN GLARGINE 100 UNITS/ML SYRINGE SC SCH (21:05)
--- NOTE | 2016-09-08 07:18 | NEUSURGPN ---
Assessment/Plan: Assessment: 71 yo male that was admitted to with LLE pain with hx of metastatic prostate CA. Pt with mass at level of S2/lower sacral nerves with compression Plan: -spinal compression/metastatic disease: Pt had a discussion with Dr Samayoa as well as Dr Starr last night and pt did not want surgery. This was offered to him last night and again this am. He prefers to have radiation therapy at this time. Dr Starr to have Rad Onc doctor see pt today for opinion and to finalize plan -continued urinary incontinence -PT/OT -surgery still an option if patient decides with this after he sees Rad Onc -warning signs discussed -risks discussed with patient and last night by Dr Samayoa and Dr Starr -call with any questions or concerns Subjective: Awake and alert. NAD. Pt eating/drinking. No change in the incontinence. No f /c/n/v/d. Objective: AAO x 3, PERRLA/EOMI no droop CN 2-12 grossly intact +lt touch 5/5/BUE/BLE = except left EHL 4-/5, left DF 4+/5 +cms/nv intact x 4 Neuro Check Frequency: per routine Urinary Catheter in Place: No - Physician Discussed Patient with : Yao Patient Seen by : Yao Neurosurgery Physical Exam - Vitals, I&O, Labs I and O 09/07/16 09/08/16 09/09/16 05:59 05:59 05:59 Intake Total 1070 500 Balance 1070 500 Intake: Oral (ml) 1070 500 Other: Intake Quantity Yes Sufficient Number of Voids Toilet 3 Diapers/Briefs 2 Vital Signs Temp Pulse Resp BP Pulse Ox 38.1 C 83 18 141/68 H 95 09/08/16 04:00 09/08/16 04:00 09/08/16 04:00 09/08/16 04:00 09/08/16 04:00 Laboratory Results 09/06/16 04:09 09/06/16 04:09 ICD10 Worksheet Patient Problems: Problems Problem Status Diagnosed Atrial tachycardia Acute Bony metastasis Acute Chronic pain Acute Generalized weakness Acute Acute CHF Acute CAD (coronary artery disease) Acute Chronic Disease Mgmt/Transitional Care Acute Diabetes mellitus type II, uncontrolled Acute NSTEMI (non-ST elevated myocardial infarction) Acute
[2016-09-08] MEDS: POLYETHYLENE GLYCOL 3350 17 GM PKT PO SCH (09:24)
[2016-09-08] MEDS: ENOXAPARIN 40 MG/0.4 ML SYR SC SCH (09:24)
[2016-09-08] MEDS: CYANO/VITAMIN B12 100 MCG TAB PO SCH (09:24)
[2016-09-08] MEDS: PANTOPRAZOLE SODIUM 40 MG TAB PO SCH (09:24)
[2016-09-08] MEDS: BISACODYL 10 MG SUPP PR PRN (09:24)
[2016-09-08] MEDS: GLUCOSAMINE SULF 500 MG CAP PO SCH (09:24)
[2016-09-08] MEDS: MULTIVITAMINS 1 EACH TAB PO SCH (09:25)
[2016-09-08] MEDS: Enzalutamide [Xtandi] 160 MG PO SCH (09:25)
[2016-09-08] MEDS: predniSONE 5 MG TAB PO SCH ×2 (09:25→17:52)
[2016-09-08] MEDS: CHOLECALCIFEROL VIT D3 1,000 UNITS TAB PO SCH (09:25)
[2016-09-08] MEDS: HYDROCODONE/APAP 5/325 TAB PO PRN (09:28)
[2016-09-08] MEDS: morphINE SR 15 MG TAB PO SCH ×2 (09:37→20:27)
--- NOTE | 2016-09-08 15:26 | SOAPPROG ---
SOAP Progress Note Assessment/Plan: E&M for Prostate cancer * Metastatic prostate cancer: on degarilex and zytiga; s/p provenge and xofigo. Showing signs of progression and has never had chemotherapy. Primary issue is local in the sacrum which needs local therapy. Further systemic therapy to be considered later and probably back in [place]. I started low dose prednisone for palliation * Soft tissue mass at S1 with pain and incontinence: they are decided on xrt and met with Dr. Xiao. Radiation will start on Sunday. * Pain control: better * Chest pain/sob: stable; still on a little oxygen * Diabetes Subjective: Doing about the same. Able to have a bm without incontinence. No loss of leg strength. Pain controlled. Objective: Vital Signs Temp Pulse Resp BP Pulse Ox 37.0 C 81 16 112/57 L 96 09/08/16 11:38 09/08/16 11:38 09/08/16 11:38 09/08/16 11:38 09/08/16 11:38 Laboratory Results 09/06/16 04:09 09/06/16 04:09 09/07/16 09/08/16 09/09/16 05:59 05:59 05:59 Intake Total 1070 500 Balance 1070 500 PT 15.1 SEC (12.0-15.0) H 09/05/16 20:37 INR 1.19 (0.83-1.16) H 09/05/16 20:37 Laboratory Tests 09/08/16 04:12 Prostate Specific Ag 21.40 H Physical Exam - Physical Exam General Appearance: no apparent distress Neuro/Psych: no motor/sensory deficits ICD10 Worksheet Patient Problems: Problems Problem Status Diagnosed Atrial tachycardia Acute Bony metastasis Acute Chronic pain Acute Generalized weakness Acute Acute CHF Acute CAD (coronary artery disease) Acute Chronic Disease Mgmt/Transitional Care Acute Diabetes mellitus type II, uncontrolled Acute NSTEMI (non-ST elevated myocardial infarction) Acute
--- NOTE | 2016-09-08 19:41 | HOSPPROG ---
Hospitalist Progress Note Assessment/Plan: 71 yo M w cad, prostate CA w bony mets admitted w pain, brief run of atrial tachycardia atrial tachycardia: having episodes on monitor increase bb to 50 hs no indication for anticoag incontinence: concerning for metastatic disease d/t metastatic disease metastatic prostate cancer * plan for radiation to sacral mass * he doesn't want surgery at this time pain: encouraged to take ms contin w msir for breakthrough DM: continue lantus cad: neg trop proph: add lmwh dispo: inp Subjective: having pain. doesn't remember refusing ms contin Objective: Vital Signs Temp Pulse Resp BP Pulse Ox 37.1 C 76 20 121/77 H 96 09/08/16 16:49 09/08/16 16:49 09/08/16 16:49 09/08/16 16:49 09/08/16 16:49 Laboratory Results 09/06/16 04:09 09/06/16 04:09 09/07/16 09/08/16 09/09/16 05:59 05:59 05:59 Intake Total 1070 500 455 Output Total 2 Balance 1070 500 453 PT 15.1 SEC (12.0-15.0) H 09/05/16 20:37 INR 1.19 (0.83-1.16) H 09/05/16 20:37 - Physical Exam Constitutional: no apparent distress, appears nourished, not in pain Ears, Nose, Mouth, Throat: moist mucous membranes Cardiovascular: regular rate and rhythym, no murmur, rub, or gallop Respiratory: no respiratory distress, no rales or rhonchi, clear to auscultation Gastrointestinal: normoactive bowel sounds, soft, non-tender abdomen, no palpable masses Neurologic: AAOx3, other (equal le stregth) Psychiatric: interacting appropriately, not anxious, not encephalopathic, thought process linear ICD10 Worksheet Patient Problems: Problems Problem Status Diagnosed Atrial tachycardia Acute Bony metastasis Acute Chronic pain Acute Generalized weakness Acute Acute CHF Acute CAD (coronary artery disease) Acute Chronic Disease Mgmt/Transitional Care Acute Diabetes mellitus type II, uncontrolled Acute NSTEMI (non-ST elevated myocardial infarction) Acute
[2016-09-08] MEDS: LISINOPRIL 5 MG TAB PO SCH (20:26)
[2016-09-08] MEDS: AMITRIPTYLINE HCL 25 MG TAB PO SCH (20:26)
[2016-09-08] MEDS: METOPROLOL SUCCINATE XR 50 MG TAB PO SCH (20:26)
[2016-09-08] MEDS: ASPIRIN 81 MG CHEWABLE TAB PO SCH (20:27)
[2016-09-08] MEDS: ATORVASTATIN CALCIUM 40 MG TAB PO SCH (20:27)
[2016-09-08] MEDS: INSULIN GLARGINE 100 UNITS/ML SYRINGE SC SCH (20:27)
[2016-09-08] MEDS: ACETAMINOPHEN 325 MG TAB PO PRN (22:28)
[2016-09-09 04:05] LABS: % IMMATURE GRANULYOCYTES 0.9 % (0.0-1.1); ABSOLUTE IMMATURE GRANULOCYTES 0.06 10^3/uL (0.00-0.10); ADD DIFF? NO; ADD MORPH? NO; ADD SCAN? NO; ATYPICAL LYMPHOCYTE FLAG 0 (0-99); FRAGMENT RBC FLAG 0 (0-99); HEMATOCRIT 21.8 % (40.0-51.0); HEMOGLOBIN 7.5 g/dL (13.7-17.5); LEFT SHIFT FLG 0 (0-99); LIPEMIA HEMOLYSIS FLAG 90 (0-99); MEAN CELL HEMOGLOBIN 29.4 pg (27.9-34.1); MEAN CELL HEMOGLOBIN CONCENTR. 34.4 g/dL (32.4-36.7); MEAN CELL VOLUME 85.5 fL (81.5-99.8); MEAN PLATELET VOLUME 9.3 fL (8.7-11.7); PLATELET CLUMPS FLAG 40 (0-99); PLATELET COUNT 118 10^3/uL (150-400); RED BLOOD CELL COUNT 2.55 10^6/uL (4.40-6.38); RED CELL DISTRIBUTION WIDTH 18.6 % (11.5-15.2)
[2016-09-09 04:12] LABS: ALANINE AMINOTRANSFERASE 31 IU/L (21-72); ALBUMIN 2.8 g/dL (3.5-5.0); ALKALINE PHOSPHATASE 70 IU/L (38-126); ANION GAP 8 mEq/L (8-16); ASPARTATE AMINOTRANSFERASE 75 IU/L (17-59); BILIRUBIN,TOTAL 0.6 mg/dL (0.1-1.4); CALCIUM 7.3 mg/dL (8.5-10.4); CARBON DIOXIDE 22 mEq/l (22-31); CHLORIDE 102 mEq/L (97-110); CREATININE 1.4 mg/dL (0.7-1.3); GLOMERULAR FILTRATION RATE 50; GLUCOSE 168 mg/dL (70-100); POTASSIUM 4.7 mEq/L (3.5-5.2); SODIUM 132 mEq/L (134-144); TOTAL PROTEIN 5.7 g/dL (6.3-8.2)
[2016-09-09] MEDS: POLYETHYLENE GLYCOL 3350 17 GM PKT PO SCH (10:16)
[2016-09-09] MEDS: ENOXAPARIN 40 MG/0.4 ML SYR SC SCH (10:16)
[2016-09-09] MEDS: morphINE SR 15 MG TAB PO SCH ×2 (10:17→20:53)
[2016-09-09] MEDS: MULTIVITAMINS 1 EACH TAB PO SCH (10:17)
[2016-09-09] MEDS: CHOLECALCIFEROL VIT D3 1,000 UNITS TAB PO SCH (10:17)
[2016-09-09] MEDS: PANTOPRAZOLE SODIUM 40 MG TAB PO SCH (10:17)
[2016-09-09] MEDS: CYANO/VITAMIN B12 100 MCG TAB PO SCH (10:17)
[2016-09-09] MEDS: GLUCOSAMINE SULF 500 MG CAP PO SCH (10:17)
[2016-09-09] MEDS: predniSONE 5 MG TAB PO SCH ×2 (10:29→17:48)
[2016-09-09] MEDS: Enzalutamide [Xtandi] 160 MG PO SCH (11:26)
--- NOTE | 2016-09-09 12:49 | SOAPPROG ---
SOAP Progress Note Assessment/Plan: Assessment: E&M for Prostate cancer * Metastatic prostate cancer: on degarilex and zytiga; s/p provenge and xofigo. Showing signs of progression and has never had chemotherapy. Primary issue is local in the sacrum which needs local therapy. Further systemic therapy to be considered later and probably back in [place]. I started low dose prednisone for palliation * Soft tissue mass at S1 with pain and incontinence: they are decided on xrt and met with Dr. Xiao. Radiation will start on Sunday. * Pain control: better * Chest pain/sob: stable; still on a little oxygen * Diabetes Plan:RT sunday09/09/16 12:47 Subjective: Pain better Objective: Vital Signs Temp Pulse Resp BP Pulse Ox 98.4 F 74 16 144/74 H 95 09/09/16 11:54 09/09/16 11:54 09/09/16 11:54 09/09/16 11:54 09/09/16 11:54 Laboratory Results 09/09/16 03:25 09/09/16 03:25 09/08/16 09/09/16 09/10/16 05:59 05:59 05:59 Intake Total 500 605 Output Total 2 Balance 500 603 PT 15.1 SEC (12.0-15.0) H 09/05/16 20:37 INR 1.19 (0.83-1.16) H 09/05/16 20:37 ICD10 Worksheet Patient Problems: Problems Problem Status Diagnosed Atrial tachycardia Acute Bony metastasis Acute Chronic pain Acute Generalized weakness Acute Acute CHF Acute CAD (coronary artery disease) Acute Chronic Disease [facility]/Transitional Care Acute Diabetes mellitus type II, uncontrolled Acute NSTEMI (non-ST elevated myocardial infarction) Acute
[2016-09-09] MEDS ORDERED: CALCIUM CARBONATE 500 MG CHEWABLE TAB PO PRN (13:43)
--- NOTE | 2016-09-09 15:07 | HOSPPROG ---
Hospitalist Progress Note Assessment/Plan: 71 yo M w cad, prostate CA w bony mets admitted w pain, brief run of atrial tachycardia atrial tachycardia: having episodes on monitor increase bb to 50 hs no indication for anticoag incontinence: concerning for metastatic disease d/t metastatic disease metastatic prostate cancer * plan for radiation to sacral mass * he doesn't want surgery at this time pain: encouraged to take ms contin w msir for breakthrough DM: continue lantus cad: neg trop proph: add lmwh dispo: inp Subjective: pain well controlled Objective: Vital Signs Temp Pulse Resp BP Pulse Ox 36.9 C 74 16 144/74 H 95 09/09/16 11:54 09/09/16 11:54 09/09/16 11:54 09/09/16 11:54 09/09/16 11:54 Laboratory Results 09/09/16 03:25 09/09/16 03:25 09/08/16 09/09/16 09/10/16 05:59 05:59 05:59 Intake Total 500 605 Output Total 2 Balance 500 603 PT 15.1 SEC (12.0-15.0) H 09/05/16 20:37 INR 1.19 (0.83-1.16) H 09/05/16 20:37 - Physical Exam Constitutional: no apparent distress, appears nourished, not in pain Eyes: anicteric sclera, EOMI Ears, Nose, Mouth, Throat: moist mucous membranes, hearing normal Cardiovascular: No edema Respiratory: no respiratory distress Gastrointestinal: normoactive bowel sounds, soft, non-tender abdomen, no palpable masses Skin: warm Neurologic: AAOx3 Psychiatric: interacting appropriately, not anxious, not encephalopathic, thought process linear ICD10 Worksheet Patient Problems: Problems Problem Status Diagnosed Atrial tachycardia Acute Bony metastasis Acute Chronic pain Acute Generalized weakness Acute Acute CHF Acute CAD (coronary artery disease) Acute Chronic Disease Mgmt/Transitional Care Acute Diabetes mellitus type II, uncontrolled Acute NSTEMI (non-ST elevated myocardial infarction) Acute
[2016-09-09] MEDS: LISINOPRIL 5 MG TAB PO SCH ×2 (20:53→20:54)
[2016-09-09] MEDS: ACETAMINOPHEN 325 MG TAB PO PRN (20:54)
[2016-09-09] MEDS: ATORVASTATIN CALCIUM 40 MG TAB PO SCH (20:55)
[2016-09-09] MEDS: INSULIN GLARGINE 100 UNITS/ML SYRINGE SC SCH (20:55)
[2016-09-09] MEDS: METOPROLOL SUCCINATE XR 50 MG TAB PO SCH (20:55)
[2016-09-09] MEDS: ASPIRIN 81 MG CHEWABLE TAB PO SCH (20:55)
[2016-09-09] MEDS: AMITRIPTYLINE HCL 25 MG TAB PO SCH (20:59)
[2016-09-10] MEDS: Enzalutamide [Xtandi] 160 MG PO SCH (10:09)
[2016-09-10] MEDS: OMEPRAZOLE 20 MG PO SCH (10:10)
[2016-09-10] MEDS: ENOXAPARIN 40 MG/0.4 ML SYR SC SCH (10:12)
[2016-09-10] MEDS: CYANO/VITAMIN B12 100 MCG TAB PO SCH (10:12)
[2016-09-10] MEDS: predniSONE 5 MG TAB PO SCH ×2 (10:12→17:23)
[2016-09-10] MEDS: GLUCOSAMINE SULF 500 MG CAP PO SCH (10:12)
[2016-09-10] MEDS: MULTIVITAMINS 1 EACH TAB PO SCH (10:12)
[2016-09-10] MEDS: CHOLECALCIFEROL VIT D3 1,000 UNITS TAB PO SCH (10:12)
[2016-09-10] MEDS: POLYETHYLENE GLYCOL 3350 17 GM PKT PO SCH (10:12)
[2016-09-10] MEDS: morphINE SR 15 MG TAB PO SCH ×2 (10:20→20:28)
--- NOTE | 2016-09-10 10:42 | HOSPPROG ---
Hospitalist Progress Note Assessment/Plan: 71 yo M w cad, prostate CA w bony mets admitted w pain, brief run of atrial tachycardia atrial tachycardia: having episodes on monitor no further episodes incontinence: concerning for metastatic disease d/t metastatic disease metastatic prostate cancer * plan for radiation to sacral mass * he doesn't want surgery at this time pain: better with MS Contin anemia * recheck hemoglobin mild chronic kidney disease * stable DM: continue lantus cad: neg trop proph: add lmwh dispo: inp Subjective: had a hot flash last night. No other complaints Objective: Vital Signs Temp Pulse Resp BP Pulse Ox 36.8 C 90 21 H 148/66 H 93 09/10/16 08:00 09/10/16 08:00 09/10/16 08:00 09/10/16 08:00 09/10/16 10:34 Laboratory Results 09/09/16 03:25 09/09/16 03:25 09/09/16 09/10/16 09/11/16 05:59 05:59 05:59 Intake Total 605 860 Output Total 2 Balance 603 860 PT 15.1 SEC (12.0-15.0) H 09/05/16 20:37 INR 1.19 (0.83-1.16) H 09/05/16 20:37 - Physical Exam Constitutional: no apparent distress, appears nourished, not in pain Eyes: anicteric sclera, EOMI Respiratory: no respiratory distress Neurologic: AAOx3 Psychiatric: interacting appropriately, not anxious, not encephalopathic, thought process linear ICD10 Worksheet Patient Problems: Problems Problem Status Diagnosed Atrial tachycardia Acute Bony metastasis Acute Chronic pain Acute Generalized weakness Acute Acute CHF Acute CAD (coronary artery disease) Acute Chronic Disease Mgmt/Transitional Care Acute Diabetes mellitus type II, uncontrolled Acute NSTEMI (non-ST elevated myocardial infarction) Acute
--- NOTE | 2016-09-10 11:28 | SOAPPROG ---
SOAP Progress Note Assessment/Plan: Assessment: E&M for Prostate cancer * Metastatic prostate cancer: on degarilex and zytiga; s/p provenge and xofigo. Showing signs of progression and has never had chemotherapy. Primary issue is local in the sacrum which needs local therapy. Further systemic therapy to be considered later and probably back in [place]. I started low dose prednisone for palliation * Soft tissue mass at S1 with pain and incontinence: they are decided on xrt and met with Dr. Xiao. Radiation will start on Sunday. * Pain control: better * Chest pain/sob: stable; still on a little oxygen * Diabetes Plan:RT sunday, possibly home next few days 09/09/16 12:47 09/10/16 11:27 Subjective: Feels ok, pain under control Objective: Vital Signs Temp Pulse Resp BP Pulse Ox 98.2 F 90 21 H 148/66 H 93 09/10/16 08:00 09/10/16 08:00 09/10/16 08:00 09/10/16 08:00 09/10/16 10:34 09/09/16 09/10/16 09/11/16 05:59 05:59 05:59 Intake Total 605 860 Output Total 2 Balance 603 860 PT 15.1 SEC (12.0-15.0) H 09/05/16 20:37 INR 1.19 (0.83-1.16) H 09/05/16 20:37 Physical Exam - Physical Exam General Appearance: alert, no apparent distress Respiratory: lungs clear Cardiac/Chest: regular rate, rhythm Abdomen: normal bowel sounds, non-tender ICD10 Worksheet Patient Problems: Problems Problem Status Diagnosed Atrial tachycardia Acute Bony metastasis Acute Chronic pain Acute Generalized weakness Acute Acute CHF Acute CAD (coronary artery disease) Acute Chronic Disease Mgmt/Transitional Care Acute Diabetes mellitus type II, uncontrolled Acute NSTEMI (non-ST elevated myocardial infarction) Acute
[2016-09-10 11:47] LABS: ANION GAP 10 mEq/L (8-16); CALCIUM 7.4 mg/dL (8.5-10.4); CARBON DIOXIDE 23 mEq/l (22-31); CHLORIDE 101 mEq/L (97-110); CREATININE 1.3 mg/dL (0.7-1.3); GLOMERULAR FILTRATION RATE 55; GLUCOSE 109 mg/dL (70-100); POTASSIUM 4.3 mEq/L (3.5-5.2); SODIUM 134 mEq/L (134-144)
[2016-09-10 12:05] LABS: HEMATOCRIT 23.9 % (40.0-51.0); HEMOGLOBIN 8.2 g/dL (13.7-17.5); MEAN CELL HEMOGLOBIN 29.1 pg (27.9-34.1); MEAN CELL HEMOGLOBIN CONCENTR. 34.3 g/dL (32.4-36.7); MEAN CELL VOLUME 84.8 fL (81.5-99.8); RED BLOOD CELL COUNT 2.82 10^6/uL (4.40-6.38); RED CELL DISTRIBUTION WIDTH 18.6 % (11.5-15.2)
[2016-09-10] MEDS: ASPIRIN 81 MG CHEWABLE TAB PO SCH (20:28)
[2016-09-10] MEDS: ATORVASTATIN CALCIUM 40 MG TAB PO SCH (20:28)
[2016-09-10] MEDS: AMITRIPTYLINE HCL 25 MG TAB PO SCH (20:28)
[2016-09-10] MEDS: METOPROLOL SUCCINATE XR 50 MG TAB PO SCH (20:29)
[2016-09-10] MEDS: LISINOPRIL 5 MG TAB PO SCH (20:29)
[2016-09-10] MEDS: INSULIN GLARGINE 100 UNITS/ML SYRINGE SC SCH (20:31)
[2016-09-11] MEDS: GLUCOSAMINE SULF 500 MG CAP PO SCH (08:43)
[2016-09-11] MEDS: POLYETHYLENE GLYCOL 3350 17 GM PKT PO SCH (08:43)
[2016-09-11] MEDS: ENOXAPARIN 40 MG/0.4 ML SYR SC SCH (08:43)
[2016-09-11] MEDS: CHOLECALCIFEROL VIT D3 1,000 UNITS TAB PO SCH (08:44)
[2016-09-11] MEDS: MULTIVITAMINS 1 EACH TAB PO SCH (08:44)
[2016-09-11] MEDS: morphINE SR 15 MG TAB PO SCH ×2 (08:44→20:12)
[2016-09-11] MEDS: CYANO/VITAMIN B12 100 MCG TAB PO SCH (08:44)
[2016-09-11] MEDS: predniSONE 5 MG TAB PO SCH ×2 (08:44→18:27)
[2016-09-11] MEDS: Enzalutamide [Xtandi] 160 MG PO SCH (08:48)
[2016-09-11] MEDS: OMEPRAZOLE 20 MG PO SCH (08:49)
--- NOTE | 2016-09-11 10:51 | HOSPPROG ---
Hospitalist Progress Note Assessment/Plan: 71 yo M w cad, prostate CA w bony mets admitted w pain, brief run of atrial tachycardia metastatic prostate cancer * plan for radiation to sacral mass today * he doesn't want surgery at this time pain: better with MS Contin anemia * recheck hemoglobin mild chronic kidney disease * stable DM: continue lantus cad: neg trop atrial tachycardia: resolved proph: add lmwh dispo: * DC tomorrow Subjective: no new complaints Objective: Vital Signs Temp Pulse Resp BP Pulse Ox 36.7 C 64 19 127/69 H 90 L 09/11/16 07:46 09/11/16 07:46 09/11/16 07:46 09/11/16 07:46 09/11/16 07:46 Laboratory Results 09/10/16 11:05 09/10/16 11:05 09/10/16 09/11/16 09/12/16 05:59 05:59 05:59 Intake Total 860 3035 Balance 860 3035 PT 15.1 SEC (12.0-15.0) H 09/05/16 20:37 INR 1.19 (0.83-1.16) H 09/05/16 20:37 - Physical Exam Constitutional: no apparent distress, appears nourished, not in pain Eyes: anicteric sclera, EOMI Ears, Nose, Mouth, Throat: moist mucous membranes, hearing normal, ears appear normal Cardiovascular: regular rate and rhythym Respiratory: no respiratory distress Neurologic: AAOx3 Psychiatric: interacting appropriately, not anxious, not encephalopathic, thought process linear ICD10 Worksheet Patient Problems: Problems Problem Status Diagnosed Atrial tachycardia Acute Bony metastasis Acute Chronic pain Acute Generalized weakness Acute Acute CHF Acute CAD (coronary artery disease) Acute Chronic Disease Mgmt/Transitional Care Acute Diabetes mellitus type II, uncontrolled Acute NSTEMI (non-ST elevated myocardial infarction) Acute
[2016-09-11] MEDS: ASPIRIN 81 MG CHEWABLE TAB PO SCH (20:11)
[2016-09-11] MEDS: METOPROLOL SUCCINATE XR 50 MG TAB PO SCH (20:11)
[2016-09-11] MEDS: INSULIN GLARGINE 100 UNITS/ML SYRINGE SC SCH (20:11)
[2016-09-11] MEDS: AMITRIPTYLINE HCL 25 MG TAB PO SCH (20:12)
[2016-09-11] MEDS: LISINOPRIL 5 MG TAB PO SCH (20:12)
[2016-09-11] MEDS: ATORVASTATIN CALCIUM 40 MG TAB PO SCH (20:12)
--- NOTE | 2016-09-12 07:55 | SOAPPROG ---
SOAP Progress Note Assessment/Plan: Assessment: 1.) Stage IV Prostate Carcinoma, with symptomatic sacral mets- on daily XRT- ten sessions planned. Today is Day # 2. 2.) Anemia, mild Tpenia due to prostate cancer 3.) Hx. CAD 4.) Discharge planning- patient's will return from [place], [place] tomorrow, and patient thinks he can return home to [place] this week, to complete course of XRT as an outpt, with driving down from [place] to the Radiation facility here daily as needed to complete his course of XRT next week. Plan: 1.) See above. 2.) Possibly home 09/13 or 09/14. 3.) Repeat CBC tomorrow. 4.) Discharge advised as above, with Radiation Oncology follow up and Medical Oncology follow up with Dr. Starr, thereafter. 09/12/16 07:51 Subjective: having some constipation. Tolerated first of ten XRT yesterday ( Sacrum radiation) without difficulty. Feels he could go home, perhaps tomorrow ( Sunday, 09/13). No new sx. Objective: VSS, Afebrile as noted here HEENT- anicteric, no oral lesions Neck- supple Chest- clear CVS- RSR, no extra HS ABD- BS+, soft NT, no mass or HSM EXT- benign Labs as noted here: Hgb 8.2, PLT 137 Vital Signs Temp Pulse Resp BP Pulse Ox 36.7 C 60 16 119/65 90 L 09/12/16 07:27 09/12/16 07:27 09/12/16 07:27 09/12/16 07:27 09/12/16 07:27 Laboratory Results 09/10/16 11:05 09/10/16 11:05 09/11/16 09/12/16 09/13/16 05:59 05:59 05:59 Intake Total 3035 1610 Balance 3035 1610 PT 15.1 SEC (12.0-15.0) H 09/05/16 20:37 INR 1.19 (0.83-1.16) H 09/05/16 20:37 ICD10 Worksheet Patient Problems: Problems Problem Status Diagnosed Atrial tachycardia Acute Bony metastasis Acute Chronic pain Acute Generalized weakness Acute Acute CHF Acute CAD (coronary artery disease) Acute Chronic Disease Mgmt/Transitional Care Acute Diabetes mellitus type II, uncontrolled Acute NSTEMI (non-ST elevated myocardial infarction) Acute
[2016-09-12] MEDS: BISACODYL 10 MG SUPP PR PRN (08:04)
[2016-09-12] MEDS: POLYETHYLENE GLYCOL 3350 17 GM PKT PO SCH (08:04)
[2016-09-12] MEDS: CHOLECALCIFEROL VIT D3 1,000 UNITS TAB PO SCH (08:42)
[2016-09-12] MEDS: ENOXAPARIN 40 MG/0.4 ML SYR SC SCH (08:42)
[2016-09-12] MEDS: MULTIVITAMINS 1 EACH TAB PO SCH (08:42)
[2016-09-12] MEDS: GLUCOSAMINE SULF 500 MG CAP PO SCH (08:42)
[2016-09-12] MEDS: CYANO/VITAMIN B12 100 MCG TAB PO SCH (08:43)
[2016-09-12] MEDS: morphINE SR 15 MG TAB PO SCH ×2 (08:43→20:28)
[2016-09-12] MEDS: OMEPRAZOLE 20 MG PO SCH (08:43)
[2016-09-12] MEDS: predniSONE 5 MG TAB PO SCH ×2 (08:43→18:34)
[2016-09-12] MEDS: Enzalutamide [Xtandi] 160 MG PO SCH (08:44)
--- NOTE | 2016-09-12 16:52 | HOSPPROG ---
Hospitalist Progress Note Assessment/Plan: 71 yo M w cad, prostate CA w bony mets admitted w pain, brief run of atrial tachycardia metastatic prostate cancer * getting radiation * he doesn't want surgery at this time pain: better with MS Contin anemia * recheck hemoglobin mild chronic kidney disease * stable DM: continue lantus cad: neg trop atrial tachycardia: resolved proph: add lmwh dispo: * DC tomorrow after radiation * would continue MS Contin outpatient Subjective: pain is much better Objective: Vital Signs Temp Pulse Resp BP Pulse Ox 36.6 C 59 L 16 133/68 H 96 09/12/16 11:08 09/12/16 11:08 09/12/16 11:08 09/12/16 11:08 09/12/16 11:08 Laboratory Results 09/10/16 11:05 09/10/16 11:05 09/11/16 09/12/16 09/13/16 05:59 05:59 05:59 Intake Total 3035 1610 Balance 3035 1610 PT 15.1 SEC (12.0-15.0) H 09/05/16 20:37 INR 1.19 (0.83-1.16) H 09/05/16 20:37 - Physical Exam Constitutional: no apparent distress, appears nourished, not in pain Eyes: anicteric sclera, EOMI Ears, Nose, Mouth, Throat: moist mucous membranes, hearing normal Cardiovascular: regular rate and rhythym, no murmur, rub, or gallop Respiratory: no respiratory distress Neurologic: AAOx3 Psychiatric: interacting appropriately, not anxious, not encephalopathic, thought process linear ICD10 Worksheet Patient Problems: Problems Problem Status Diagnosed Atrial tachycardia Acute Bony metastasis Acute Chronic pain Acute Generalized weakness Acute Acute CHF Acute CAD (coronary artery disease) Acute Chronic Disease Mgmt/Transitional Care Acute Diabetes mellitus type II, uncontrolled Acute NSTEMI (non-ST elevated myocardial infarction) Acute
[2016-09-12] MEDS: AMITRIPTYLINE HCL 25 MG TAB PO SCH (20:28)
[2016-09-12] MEDS: LISINOPRIL 5 MG TAB PO SCH (20:28)
[2016-09-12] MEDS: METOPROLOL SUCCINATE XR 50 MG TAB PO SCH (20:29)
[2016-09-12] MEDS: ATORVASTATIN CALCIUM 40 MG TAB PO SCH (20:29)
[2016-09-12] MEDS: INSULIN GLARGINE 100 UNITS/ML SYRINGE SC SCH (20:30)
[2016-09-12] MEDS: ASPIRIN 81 MG CHEWABLE TAB PO SCH (20:31)
[2016-09-13 07:50] VITALS: RESP 14
[2016-09-13] MEDS: ENOXAPARIN 40 MG/0.4 ML SYR SC SCH (08:18)
[2016-09-13] MEDS: CHOLECALCIFEROL VIT D3 1,000 UNITS TAB PO SCH (08:18)
[2016-09-13] MEDS: MULTIVITAMINS 1 EACH TAB PO SCH (08:18)
[2016-09-13] MEDS: CYANO/VITAMIN B12 100 MCG TAB PO SCH (08:18)
[2016-09-13] MEDS: morphINE SR 15 MG TAB PO SCH (08:18)
[2016-09-13] MEDS: predniSONE 5 MG TAB PO SCH (08:18)
[2016-09-13] MEDS: GLUCOSAMINE SULF 500 MG CAP PO SCH (08:18)
[2016-09-13] MEDS: Enzalutamide [Xtandi] 160 MG PO SCH (08:19)
[2016-09-13] MEDS: OMEPRAZOLE 20 MG PO SCH (08:21)
[2016-09-13] MEDS: POLYETHYLENE GLYCOL 3350 17 GM PKT PO SCH (08:21)
[2016-09-13 11:21] VITALS: PULSE 67
--- NOTE | 2016-09-13 14:57 | GDS ---
[f rep st] DISCHARGE SUMMARY DISCHARGE DIAGNOSES: 1. Metastatic prostate cancer, undergoing radiation. 2. Metastatic bone pain, improved with MS Contin. 3. Anemia. 4. Chronic kidney disease. 5. Diabetes. 6. Coronary artery disease. 7. Resolved atrial tachycardia. CONSULTANTS: Neurosurgery; Lupe Starr, Oncology. HOSPITAL COURSE AND STAY BY PROBLEM: 1. Hip pain due to metastatic prostate cancer: The patient was admitted to the hospital where he was started on long-acting morphine which controlled his pain. He was seen by Oncology who are recommending radiation which he is currently undergoing. Currently, the patient is also on 5 mg of prednisone twice daily which will need to be tapered in the outpatient setting. 2. Atrial tachycardia: The patient presented with an atrial tachycardia that has since resolved. PHYSICAL EXAM: VITAL SIGNS: On day of discharge, blood pressure 121/61, pulse 67, respiratory rate 14, O2 saturation 93% on room air. GENERAL: No acute distress. HEART: S1, S2. LUNGS: Clear. ABDOMEN: Soft. EXTREMITIES: No edema. PERTINENT LABS AND STUDIES DONE THIS HOSPITAL STAY: Lumbar spine, pelvis MRIs done on 09/07/2016. Refer to report. CT angio of the chest on 09/05/2016. Refer to report. PROCEDURES DONE DURING THIS HOSPITAL STAY: Localized radiation therapy to soft tissue mass at S1. DISCHARGE MEDICATIONS: Please refer to discharge medication reconciliation in [facility] for full details. Below is a preliminary list. New medications on hospital discharge: Morphine SR 15 mg p.o. twice daily and morphine IR 15 mg p.o. q.4 hours as needed for breakthrough pain. All other home medications were continued as usual home dosages. DISCHARGE INSTRUCTIONS: The patient will be discharged from the hospital where he should follow up with Oncology as directed. Once again, he should have further titration of his pain medications as well as his prednisone that was started for palliation. /[id number]/MODL MTDD
[2016-09-13 15:34] VITALS: BP 130/79; TEMP 97.3; O2SAT 96
== END 2016-09-13 16:37 | disposition home or self-care (01) | DRG 543 ==
LOC: F2W 09-06 00:05 → UNDODISIN 09-12 12:50
PROVIDERS: ADMIT Internal Medicine; ATTEND Family Medicine
PROC: DW062ZZ Beam Radiation of Pelvic Region using Photons >10 MeV (ICD-10-PCS; principal; 2016-09-12)
DX: C79.51 Secondary malignant neoplasm of bone (principal); C61 Malignant neoplasm of prostate; I47.1 Supraventricular tachycardia; M48.06 Spinal stenosis, lumbar region; R32 Unspecified urinary incontinence; D64.9 Anemia, unspecified; N18.9 Chronic kidney disease, unspecified; E11.22 Type 2 diabetes mellitus with diabetic chronic kidney disease; I25.10 Atherosclerotic heart disease of native coronary artery without angina pectoris; Z95.1 Presence of aortocoronary bypass graft
CPT/HCPCS: 96374; 97116-GP; 97162-GP; 97165-GO; G8978-GP-CJ; G8979-GP-CI; G8987-GO-CI; G8988-GO-CI; G8989-GO-CI; J1170; J1650; J1815; J2405; Q9967

== ENCOUNTER 2016-09-21 15:15 | Inpatient (IN) | payer OTHER, BC ==
--- NOTE | 2016-09-21 15:45 | CPEKG ---
Heart Rate: 70 RR Interval: 857 P-R Interval: 156 QRSD Interval: 92 QT Interval: 472 QTC Interval: 510 P Pana: -32 QRS Pana: -17 T Wave Pana: 111 EKG Severity - ABNORMAL ECG - EKG Impression: SINUS RHYTHM EKG Impression: PROBABLE LEFT ATRIAL ABNORMALITY EKG Impression: BORDERLINE LEFT AXIS DEVIATION EKG Impression: NONSPECIFIC T ABNORMALITIES, LATERAL LEADS EKG Impression: PROLONGED QT INTERVAL Electronically Signed By: David Rodgers 21-Sep-2016 19:46:24
[2016-09-21 15:56] LABS: % IMMATURE GRANULYOCYTES 2.1 % (0.0-1.1); ABSOLUTE IMMATURE GRANULOCYTES 0.23 10^3/uL (0.00-0.10); ABSOLUTE NRBC COUNT 0.02 10^3/uL (0-0.01); ADD DIFF? NO; ADD MORPH? YES; ADD SCAN? NO; ATYPICAL LYMPHOCYTE FLAG 0 (0-99); FRAGMENT RBC FLAG 0 (0-99); HEMOGLOBIN 8.2 g/dL (13.7-17.5); LEFT SHIFT FLG 30 (0-99); LIPEMIA HEMOLYSIS FLAG 90 (0-99); MEAN CELL HEMOGLOBIN 29.7 pg (27.9-34.1); MEAN CELL HEMOGLOBIN CONCENTR. 34.2 g/dL (32.4-36.7); NRBC-AUTO% 0.2 % (0.0-0.2); PLATELET CLUMPS FLAG 0 (0-99); PLATELET COUNT 182 10^3/uL (150-400); RED BLOOD CELL COUNT 2.76 10^6/uL (4.40-6.38)
[2016-09-21 15:58] LABS: RED CELL DISTRIBUTION WIDTH 20.5 % (11.5-15.2)
--- NOTE | 2016-09-21 16:23 | DX ---
Chest, Two Views at 1533 hours History: Shortness of breath. Comparison: September 05, 2016 Findings: Cardiac silhouette is within normal range. Median sternotomy wires and mediastinal clips fr om prior coronary artery bypass. Sclerotic changes bilateral diffuse osseous structures suspicious fo r prostate cancer metastasis. No pneumonia, congestive heart failure, pleural effusion, or pneumothor ax. Impression: 1. Osteoblastic metastasis suspicious for prostate carcinoma metastasis. 2. Prior coronary artery bypass. 3. No definite pneumonia or pulmonary edema.
[2016-09-21 16:36] LABS: ANION GAP 14 mEq/L (8-16); CALCIUM 7.8 mg/dL (8.5-10.4); CARBON DIOXIDE 20 mEq/l (22-31); CHLORIDE 97 mEq/L (97-110); CREATININE 1.9 mg/dL (0.7-1.3); GLOMERULAR FILTRATION RATE 35; GLUCOSE 183 mg/dL (70-100); POTASSIUM 4.7 mEq/L (3.5-5.2); SODIUM 131 mEq/L (134-144)
[2016-09-21 16:39] LABS: MACROCYTES 1+; MICROCYTES 1+; PLATELET ESTIMATE ADEQUATE (ADEQ); POLYCHROMASIA 1+
--- NOTE | 2016-09-21 17:15 | EDPHY ---
HPI/HX/ROS/PE/MDM Narrative: Chief complaint, weakness, shortness of breath HPI: 71-year-old male with a history of metastatic prostate CA with bony metastasis. He was admitted to a week ago for exacerbation of pain. At that time he was noted to be anemic with an discharge H&H of 8.2 and 23.9. There was some discussion at that time of giving him a transfusion but he was asymptomatic and so the decision was to hold off. Patient presenting complaining of worsening weakness and shortness of breath for the last couple of days. [facility] and sent over for evaluation. Denies any chest pain. No fevers or chills. No nausea or vomiting. States that his pain is improved significantly with his radiation treatments and analgesia he has been taking. He has not had any syncopal episodes. No palpitations. Denies any melena. He is not currently on any anticoagulation. ROS: 10 point Review of Systems is negative except as noted in the HPI. Physical exam: Gen: Awake, Alert, No Distress, frail and pale appearing HEENT: Nose: no rhinorrhea Eyes: PERRLA, EOMI, pale conjunctiva Mouth: Moist mucosa Neck: Supple, no JVD Chest: nontender, lungs clear to auscultation Heart: S1, S2 normal, no murmur Abd: Soft, non-tender, no guarding Back: no CVA tenderness, no midline tenderness Ext: no edema, non-tender Skin: no rash Neuro: CN II-XII intact, Sensation grossly intact, Strength 5/5 in bilateral upper and lower extremities ED Course: Patient's H&H here are 8.4 and 24.7. No significant change from discharge but he is now symptomatic. No acute changes on his ECG. Remainder of his laboratory evaluations are unremarkable. I have discussed with Dr. Hopson, hospitalist. They will admit to his service for further evaluation and planned transfusion. - Data Points Laboratory Results: Laboratory Results 09/21/16 15:45 09/21/16 16:00 09/21/16 09/21/16 16:00 15:45 WBC 10.87 H 10^3/uL (3.80-9.50) RBC 2.76 L 10^6/uL (4.40-6.38) Hgb 8.2 L g/dL (13.7-17.5) Hct 24.0 L % (40.0-51.0) MCV 87.0 fL (81.5-99.8) MCH 29.7 pg (27.9-34.1) MCHC 34.2 g/dL (32.4-36.7) RDW 20.5 H % (11.5-15.2) Plt Count 182 10^3/uL (150-400) MPV 9.0 fL (8.7-11.7) Neut % (Auto) 83.1 H % (39.3-74.2) Lymph % (Auto) 6.0 L % (15.0-45.0) [place] % (Auto) 8.3 % (4.5-13.0) Eos % (Auto) 0.2 L % (0.6-7.6) Baso % (Auto) 0.3 % (0.3-1.7) Nucleat RBC Rel Count 0.2 % (0.0-0.2) Absolute Neuts (auto) 9.04 H 10^3/uL (1.70-6.50) Absolute Lymphs (auto) 0.65 L 10^3/uL (1.00-3.00) Absolute Monos (auto) 0.90 H 10^3/uL (0.30-0.80) Absolute Eos (auto) 0.02 L 10^3/uL (0.03-0.40) Absolute Basos (auto) 0.03 10^3/uL (0.02-0.10) Absolute Nucleated RBC 0.02 H 10^3/uL (0-0.01) Immature Gran % 2.1 H % (0.0-1.1) Immature Gran # 0.23 H 10^3/uL (0.00-0.10) Platelet Estimate ADEQUATE (ADEQ) Polychromasia 1+ H Microcytic Cells 1+ H Oval Macrocytes 1+ H Sodium 131 L mEq/L (134-144) Potassium 4.7 mEq/L (3.5-5.2) Chloride 97 mEq/L (97-110) Carbon Dioxide 20 L mEq/l (22-31) Anion Gap 14 mEq/L (8-16) BUN 43 H mg/dL (7-23) Creatinine 1.9 H mg/dL (0.7-1.3) Estimated GFR 35 Glucose 183 H mg/dL (70-100) Calcium 7.8 L mg/dL (8.5-10.4) Troponin I 0.014 ng/mL (0-0.034) General Time Seen by Provider: 09/21/16 15:33 Initial Vital Signs: Initial Vital Signs Temperature (C) 36.7 C 09/21/16 15:17 Heart Rate 75 09/21/16 15:17 Respiratory Rate 16 09/21/16 15:17 Blood Pressure 95/53 L 09/21/16 15:17 O2 Sat (%) 96 09/21/16 15:17 O2 Delivery Mode Room Air Allergies/Adverse Reactions: No Known Allergies Allergy (Unverified 09/05/16 20:22) Home Medications: Medication Instructions Recorded Aspirin [Aspirin 81mg (*)] 81 mg PO HS 11/23/13 Cholecalciferol Vit D3 [Vitamin D3 1,000 units PO DAILY 11/23/13 (*)] Cyanocobalamin [Vitamin B12 (*)] 100 mcg PO DAILY 11/23/13 Degarelix Acetate [Firmagon] 0 mg SQ Q180D #0 11/23/13 Glucosamine Sulfate [Glucosamine 500 mg PO DAILY 11/23/13 Sulfate 500 MG (*)] Multivitamins [Multivitamin (*)] 1 each PO DAILY 11/23/13 Omeprazole Magnesium [Prilosec Otc] 20 mg PO DAILY 11/23/13 Amitriptyline HCl [Elavil 50 mg 25 mg PO HS 09/06/16 (*)] Atorvastatin Calcium [Lipitor 40 40 mg PO HS 09/06/16 mg (*)] Enzalutamide [Xtandi] 160 mg PO DAILY 09/06/16 Insulin Glargine [Lantus 100 50 units SC HS 09/06/16 UNITS/ML (*)] Lisinopril [Zestril 5 mg (*)] 5 mg PO HS 09/06/16 Metoprolol Succinate Xr [Toprol Xl 25 mg PO HS 09/06/16 25 mg (*)] Vitamin D Shot 0 mg SQ Q180D 09/06/16 Docusate Sodium 100 mg PO BID #30 capsule 09/13/16 Polyethylene Glycol 3350 [Miralax 17 gm PO DAILY #30 pkt 09/13/16 17 gm (*)] morphINE IR [morphINE IR 15 mg (*)] 15 mg PO Q4HRS PRN #10 tab 09/13/16 morphINE SR [Ms Contin/Oramorph 15 15 mg PO BID #30 tab 09/13/16 mg (*)] predniSONE 5 mg PO BIDMEAL #20 tab 09/13/16 Dronabinol [Marinol 2.5 MG (*)] 2.5 mg PO BID 09/21/16 Departure - Departure Disposition: [facility] Clinical Impression: Anemia Condition: Fair
[2016-09-21] MEDS ORDERED: ACETAMINOPHEN 325 MG TAB PO PRN (17:21)
[2016-09-21] MEDS ORDERED: ONDANSETRON DISINTEGRATING 4 MG TAB PO PRN (17:21)
[2016-09-21] MEDS ORDERED: ONDANSETRON 4 MG/2 ML VIAL IVP PRN (17:21)
[2016-09-21] MEDS: NS 1,000 ML IV SCH (18:45)
--- NOTE | 2016-09-21 19:28 | PDGENHP ---
History and Physical - Chief Complaint Acute weakness - History of Present Illness Primary care provider: In [place] Primary oncologist: In [place] Primary radiation oncologist: Dr. Phong JETT: 71-year-old male presenting with acute weakness characterized as generalized with associated shortness of breath and anorexia. His onset of symptoms was approximately 1 week ago after he was discharged from the hospital the duration has been persistent thereafter. He reports that he has been regularly taking his pain medications, regularly taking his laxatives, and he continues to experience ongoing urinary incontinence. His appetite has been poor although that has been somewhat alleviated by the introduction of Marinol. That being said, his oral intake of solids and liquids over the past week has been particularly reduced. He has not had any vomiting or diarrhea. He has been taking all of his pain medications as prescribed. He has been getting radiation treatments scheduled this week and he reportedly has 2 remaining ones. History Information - Allergies/Home Medication List Allergies/Adverse Reactions: No Known Allergies Allergy (Unverified 09/05/16 20:22) Home Medications: Aspirin [Aspirin 81mg (*)] 81 mg PO HS 11/23/13 [Last Taken 09/20/16] Cholecalciferol Vit D3 [Vitamin D3 (*)] 1,000 units PO DAILY 11/23/13 [Last Taken 09/21/16] Cyanocobalamin [Vitamin B12 (*)] 100 mcg PO DAILY 11/23/13 [Last Taken 09/21/16] Degarelix Acetate [Firmagon] 0 mg SQ Q180D #0 11/23/13 [Last Taken 07/04/16] Glucosamine Sulfate [Glucosamine Sulfate 500 MG (*)] 500 mg PO DAILY 11/23/13 [ Last Taken 09/21/16] Multivitamins [Multivitamin (*)] 1 each PO DAILY 11/23/13 [Last Taken 09/21/16] Omeprazole Magnesium [Prilosec Otc] 20 mg PO DAILY 11/23/13 [Last Taken 09/21/16 ] Amitriptyline HCl [Elavil 50 mg (*)] 25 mg PO HS 09/06/16 [Last Taken 09/20/16] Atorvastatin Calcium [Lipitor 40 mg (*)] 40 mg PO HS 09/06/16 [Last Taken ] Enzalutamide [Xtandi] 160 mg PO DAILY 09/06/16 [Last Taken 09/21/16] Insulin Glargine [Lantus 100 UNITS/ML (*)] 50 units SC HS 09/06/16 [Last Taken 09/20/16] Lisinopril [Zestril 5 mg (*)] 5 mg PO HS 09/06/16 [Last Taken 09/20/16] Metoprolol Succinate Xr [Toprol Xl 25 mg (*)] 25 mg PO HS 09/06/16 [Last Taken 09/20/16] Vitamin D Shot 0 mg SQ Q180D 09/06/16 [Last Taken 07/04/16] Dronabinol [Marinol 2.5 MG (*)] 2.5 mg PO BID 09/21/16 [Last Taken 09/21/16] I have personally reviewed and updated: family history, medical history, social history, surgical history - Past Medical History Additional medical history: CAD s/p 3 vessel CABG 2013. Prostate cancer with bony mets, recently initiated on chemo/radiation therapy. DM type 2 on insulin. Atrial tachycardia, self resolved. Chronic pain with continuous opiate dependency. Chronic hyponatremia. Chronic kidney disease stage 3 with baseline creatinine 1.3-1.4 - Surgical History Additional surgical history: CABG. partial prostate resection. finger injury repair. 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 Lives with his , splits time between [place] and [place] (where pt is originally from) Review of Systems ROS: 10pt was reviewed & negative except for what was stated in HPI & below Constitutional: Reports: weakness Respiratory: Reports: shortness of breath Gastrointestinal: Reports: other (Anorexia). Denies: black stools, rectal bleeding Physical Exam Temp Pulse Resp BP Pulse Ox 36.6 C 70 21 H 146/65 H 95 09/21/16 18:44 09/21/16 18:44 09/21/16 18:44 09/21/16 18:44 09/21/16 18:44 Constitutional: no apparent distress, not in pain, chronically ill appearing, other (Pale) Eyes: PERRL, anicteric sclera, EOMI, pale conjunctiva Ears, Nose, Mouth, Throat: moist mucous membranes, hearing normal, ears appear normal, no oral mucosal ulcers Cardiovascular: regular rate and rhythym, no murmur, rub, or gallop, No edema Respiratory: no respiratory distress, no rales or rhonchi, clear to auscultation Gastrointestinal: normoactive bowel sounds, soft, non-tender abdomen, no palpable masses Genitourinary: no bladder fullness, no bladder tenderness Skin: other (Ecchymoses scattered across his abdomen without any surrounding erythema) Musculoskeletal: full muscle strength, no muscle tenderness, normal joint ROM, no joint effusions Neurologic: AAOx3, sensation intact bilaterally, No weakness Psychiatric: interacting appropriately, not anxious, not encephalopathic, thought process linear Lab Data & Imaging Review 09/21/16 15:45 09/21/16 16:00 WBC 10.87 10^3/uL (3.80-9.50) H 09/21/16 15:45 RBC 2.76 10^6/uL (4.40-6.38) L 09/21/16 15:45 Hgb 8.2 g/dL (13.7-17.5) L 09/21/16 15:45 Hct 24.0 % (40.0-51.0) L 09/21/16 15:45 MCV 87.0 fL (81.5-99.8) 09/21/16 15:45 MCH 29.7 pg (27.9-34.1) 09/21/16 15:45 MCHC 34.2 g/dL (32.4-36.7) 09/21/16 15:45 RDW 20.5 % (11.5-15.2) H 09/21/16 15:45 Plt Count 182 10^3/uL (150-400) 09/21/16 15:45 MPV 9.0 fL (8.7-11.7) 09/21/16 15:45 Neut % (Auto) 83.1 % (39.3-74.2) H 09/21/16 15:45 Lymph % (Auto) 6.0 % (15.0-45.0) L 09/21/16 15:45 [place] % (Auto) 8.3 % (4.5-13.0) 09/21/16 15:45 Eos % (Auto) 0.2 % (0.6-7.6) L 09/21/16 15:45 Baso % (Auto) 0.3 % (0.3-1.7) 09/21/16 15:45 Nucleat RBC Rel Count 0.2 % (0.0-0.2) 09/21/16 15:45 Absolute Neuts (auto) 9.04 10^3/uL (1.70-6.50) H 09/21/16 15:45 Absolute Lymphs (auto) 0.65 10^3/uL (1.00-3.00) L 09/21/16 15:45 Absolute Monos (auto) 0.90 10^3/uL (0.30-0.80) H 09/21/16 15:45 Absolute Eos (auto) 0.02 10^3/uL (0.03-0.40) L 09/21/16 15:45 Absolute Basos (auto) 0.03 10^3/uL (0.02-0.10) 09/21/16 15:45 Absolute Nucleated RBC 0.02 10^3/uL (0-0.01) H 09/21/16 15:45 Immature Gran % 2.1 % (0.0-1.1) H 09/21/16 15:45 Immature Gran # 0.23 10^3/uL (0.00-0.10) H 09/21/16 15:45 Platelet Estimate ADEQUATE (ADEQ) 09/21/16 15:45 Polychromasia 1+ H 09/21/16 15:45 Microcytic Cells 1+ H 09/21/16 15:45 Oval Macrocytes 1+ H 09/21/16 15:45 Sodium 131 mEq/L (134-144) L 09/21/16 16:00 Potassium 4.7 mEq/L (3.5-5.2) 09/21/16 16:00 Chloride 97 mEq/L (97-110) 09/21/16 16:00 Carbon Dioxide 20 mEq/l (22-31) L 09/21/16 16:00 Anion Gap 14 mEq/L (8-16) 09/21/16 16:00 BUN 43 mg/dL (7-23) H 09/21/16 16:00 Creatinine 1.9 mg/dL (0.7-1.3) H 09/21/16 16:00 Estimated GFR 35 09/21/16 16:00 Glucose 183 mg/dL (70-100) H 09/21/16 16:00 Calcium 7.8 mg/dL (8.5-10.4) L 09/21/16 16:00 Troponin I 0.014 ng/mL (0-0.034) 09/21/16 15:45 Patient ABO/Rh O POSITIVE 09/21/16 Unknown Antibody Screen NEGATIVE 09/21/16 Unknown Visualized and Interpreted Chest x-ray results: Yes Chest X-Ray results: other (Osteo Mets, no focal airspace disease) Visualized and Interpreted EKG results: Yes EKG Interpretation: Positive for: other (Normal sinus rhythm, Q-wave in lead 3 as well as AVF) Assessment & Plan Assessment: 71-year-old male presents with acute generalized weakness in the setting of acute kidney injury on chronic kidney disease as well as anemia Plan: 1. Acute kidney injury on chronic kidney disease stage 3. Acute, new problem this provider, further workup indicated. Most likely secondary to hypovolemia in the setting of poor oral intake in the setting of prostate cancer and radiation therapy -get urinalysis to rule out significant proteinuria or hematuria -give empiric normal saline and repeat serum creatinine level in a.m. -monitor strict I&Os -hold BRYAN-inhibitor 2. Anemia. Most likely secondary to a combination of chronic inflammatory disease as well as chronic kidney disease without any evidence of acute GI bleed -suspect the patient is hemoconcentrated and his actual hemoglobin level is significantly lower than his value of 8.2 -give 1 unit PRBC -hold Lasix given his acute kidney injury -repeat serum hemoglobin level in the a.m. 3. Hyponatremia. Chronic, serum sodium level near his baseline, continue to monitor 4. Metastatic prostate cancer. Patient with bony metastases and actively receiving radiation to his hip -please contact Radiation Oncology tomorrow a.m. to determine whether patient should be transported for his remaining to therapies 5. Coronary artery disease. Continue patient's home medications 6. Diabetes mellitus type 2. Continue his home dosage of Lantus, reduce if patient's oral intake reduces 7. Chronic pain with continuous opiate dependency. Reviewed outside records including 09/13/[address] Emdur characterizing patient's most recent hospitalization for hip pain with metastases to the hip, treated with combination of prednisone, morphine immediate release, morphine sustained release, radiation therapy Diet. Regular diet with Marinol Prophylaxis. High risk patient, heparin subcu Code status. Full per patient, his is MPOA Disposition. Anticipated discharge is 09/22/2016, pending stabilization of issues outlined above. I have discussed the patient's presentation with Dr. Rene Guzman in the emergency department and we agree that patient is appropriate for observation as well as IV fluids and blood transfusion overnight with reassessment in the a.m..
[2016-09-21] MEDS: AMITRIPTYLINE HCL 25 MG TAB PO SCH (21:17)
[2016-09-21] MEDS: DOCUSATE SODIUM 100 MG CAP PO SCH (21:17)
[2016-09-21] MEDS: DRONABINOL 2.5 MG CAP PO SCH (21:17)
[2016-09-21] MEDS: ASPIRIN 81 MG CHEWABLE TAB PO SCH (21:18)
[2016-09-21] MEDS: ATORVASTATIN CALCIUM 40 MG TAB PO SCH (21:18)
[2016-09-21] MEDS: morphINE SR 15 MG TAB PO SCH (21:18)
[2016-09-21] MEDS: METOPROLOL SUCCINATE XR 25 MG TAB PO SCH (21:18)
[2016-09-21] MEDS: HEPARIN 5,000 UNIT/0.5 ML SYR SC SCH (21:19)
[2016-09-21] MEDS: INSULIN GLARGINE 100 UNITS/ML SYRINGE SC SCH (21:19)
[2016-09-22 04:16] LABS: COLOR YELLOW; LEUKOCYTE ESTERASE,URINE NEGATIVE (NEGATIVE); NITRITE,URINE NEGATIVE (NEGATIVE)
[2016-09-22 05:20] LABS: % IMMATURE GRANULYOCYTES 1.9 % (0.0-1.1); ABSOLUTE IMMATURE GRANULOCYTES 0.15 10^3/uL (0.00-0.10); ADD DIFF? NO; ADD MORPH? NO; ADD SCAN? NO; ATYPICAL LYMPHOCYTE FLAG 10 (0-99); FRAGMENT RBC FLAG 0 (0-99); HEMATOCRIT 23.8 % (40.0-51.0); HEMOGLOBIN 8.2 g/dL (13.7-17.5); LEFT SHIFT FLG 20 (0-99); LIPEMIA HEMOLYSIS FLAG 90 (0-99); MEAN CELL HEMOGLOBIN 30.1 pg (27.9-34.1); MEAN CELL HEMOGLOBIN CONCENTR. 34.5 g/dL (32.4-36.7); MEAN CELL VOLUME 87.5 fL (81.5-99.8); MEAN PLATELET VOLUME 9.1 fL (8.7-11.7); PLATELET CLUMPS FLAG 0 (0-99); PLATELET COUNT 147 10^3/uL (150-400); RED BLOOD CELL COUNT 2.72 10^6/uL (4.40-6.38)
[2016-09-22] MEDS: HEPARIN 5,000 UNIT/0.5 ML SYR SC SCH ×3 (05:30→21:51)
[2016-09-22] MEDS: NS 1,000 ML IV SCH ×3 (05:30→20:25)
[2016-09-22 05:52] LABS: ANION GAP 9 mEq/L (8-16); CALCIUM 6.8 mg/dL (8.5-10.4); CARBON DIOXIDE 19 mEq/l (22-31); CHLORIDE 103 mEq/L (97-110); CREATININE 1.5 mg/dL (0.7-1.3); GLOMERULAR FILTRATION RATE 46; GLUCOSE 123 mg/dL (70-100); MAGNESIUM 2.1 mg/dL (1.6-2.3); POTASSIUM 4.6 mEq/L (3.5-5.2); SODIUM 131 mEq/L (134-144)
[2016-09-22] MEDS ORDERED: PANTOPRAZOLE SODIUM 40 MG TAB PO SCH (09:00)
[2016-09-22] MEDS: CYANO/VITAMIN B12 100 MCG TAB PO SCH (10:06)
[2016-09-22] MEDS: GLUCOSAMINE SULF 500 MG CAP PO SCH (10:06)
[2016-09-22] MEDS: MULTIVITAMINS 1 EACH TAB PO SCH (10:07)
[2016-09-22] MEDS: DRONABINOL 2.5 MG CAP PO SCH ×2 (10:07→20:26)
[2016-09-22] MEDS: CHOLECALCIFEROL VIT D3 1,000 UNITS TAB PO SCH (10:07)
[2016-09-22] MEDS: DOCUSATE SODIUM 100 MG CAP PO SCH ×2 (10:07→20:26)
[2016-09-22] MEDS: predniSONE 5 MG TAB PO SCH ×2 (10:07→18:02)
[2016-09-22] MEDS: morphINE SR 15 MG TAB PO SCH ×2 (10:28→20:26)
[2016-09-22] MEDS: POLYETHYLENE GLYCOL 3350 17 GM PKT PO SCH (10:44)
[2016-09-22] MEDS: ZEGERID OTC PO SCH (10:58)
[2016-09-22] MEDS: Enzalutamide [Xtandi] 160 MG PO SCH (12:56)
--- NOTE | 2016-09-22 15:47 | HOSPPROG ---
Hospitalist Progress Note Assessment/Plan: 71-year-old male presents with acute generalized weakness in the setting of acute kidney injury on chronic kidney disease as well as anemia. This is my first encounter, chart reviewed. Plan: 1. Acute kidney injury on chronic kidney disease stage 3. -Most likely secondary to hypovolemia in the setting of poor oral intake in the setting of prostate cancer and radiation therapy -improved but not resolved today -continue fluids -urinalysis without significant abnormalities -Check labs in the a.m. -monitor strict I&Os -hold BRYAN-inhibitor 2. Anemia. Most likely secondary to a combination of chronic inflammatory disease as well as chronic kidney disease without any evidence of acute GI bleed -patient was hemoconcentrated and his actual hemoglobin level was likely significantly lower than his value of 8.2 -gave 1 unit PRBC, no change in H&H, no signs of bleeding -hold Lasix given his acute kidney injury -repeat serum hemoglobin level in the a.m. 3. Hyponatremia. Chronic, serum sodium level near his baseline, continue to monitor 4. Metastatic prostate cancer. Patient with bony metastases and actively receiving radiation to his hip -Radiation Oncology today as previously scheduled 5. Coronary artery disease. Continue patient's home medications 6. Diabetes mellitus type 2. Continue his home dosage of Lantus, reduce if patient's oral intake reduces -check blood glucose in the a.m. 7. Chronic pain with continuous opiate dependency. -hip pain with metastases to the hip, treated with combination of prednisone, morphine immediate release, morphine sustained release, radiation therapy Diet. Regular diet with Marinol Prophylaxis. High risk patient, heparin subcu Code status. Full per patient, his is MPOA Disposition. Anticipated discharge is unclear, pending stabilization of issues outlined above. Changed to inpatient status Check labs in the a.m. Continue hydration May require further blood transfusion Subjective: Up in the chair. Feeling better than when he presented emergency room however does not feel well enough to be discharged home. Plans for radiation today. Objective: Vital Signs Temp Pulse Resp BP Pulse Ox 36.7 C 66 16 104/57 L 98 09/22/16 12:00 09/22/16 12:00 09/22/16 12:00 09/22/16 12:00 09/22/16 12:00 Laboratory Results 09/22/16 04:50 09/22/16 04:50 09/21/16 09/22/16 09/23/16 05:59 05:59 05:59 Intake Total 190 Output Total 100 Balance 1900 - - Physical Exam Constitutional: appears nourished, not in pain, chronically ill appearing Eyes: PERRL, anicteric sclera, EOMI Ears, Nose, Mouth, Throat: moist mucous membranes, hearing normal, ears appear normal Cardiovascular: No JVD, No tachycardia, No edema Respiratory: no respiratory distress, clear to auscultation, reduced air movement Gastrointestinal: normoactive bowel sounds, No tenderness, No ascites Skin: warm, normal color, No erythema Musculoskeletal: pain with ROM, muscular tenderness, generalized weakness Neurologic: AAOx3 Psychiatric: interacting appropriately, not anxious, not encephalopathic ICD10 Worksheet Patient Problems: Problems Problem Status Diagnosed Anemia Acute Acute CHF Acute Atrial tachycardia Acute Bony metastasis Acute CAD (coronary artery disease) Acute Chronic Disease Mgmt/Transitional Care Acute Chronic pain Acute Diabetes mellitus type II, uncontrolled Acute Generalized weakness Acute NSTEMI (non-ST elevated myocardial infarction) Acute
[2016-09-22] MEDS: METOPROLOL SUCCINATE XR 25 MG TAB PO SCH (20:25)
[2016-09-22] MEDS: ASPIRIN 81 MG CHEWABLE TAB PO SCH (20:25)
[2016-09-22] MEDS: INSULIN GLARGINE 100 UNITS/ML SYRINGE SC SCH (20:25)
[2016-09-22] MEDS: ATORVASTATIN CALCIUM 40 MG TAB PO SCH (20:26)
[2016-09-22] MEDS: AMITRIPTYLINE HCL 25 MG TAB PO SCH (20:26)
[2016-09-22 23:27] VITALS: RESP 16
[2016-09-23 05:24] LABS: % IMMATURE GRANULYOCYTES 2.1 % (0.0-1.1); ABSOLUTE IMMATURE GRANULOCYTES 0.13 10^3/uL (0.00-0.10); ADD DIFF? NO; ADD MORPH? NO; ADD SCAN? NO; ATYPICAL LYMPHOCYTE FLAG 0 (0-99); FRAGMENT RBC FLAG 0 (0-99); HEMATOCRIT 23.7 % (40.0-51.0); HEMOGLOBIN 7.9 g/dL (13.7-17.5); LEFT SHIFT FLG 30 (0-99); LIPEMIA HEMOLYSIS FLAG 80 (0-99); MEAN CELL HEMOGLOBIN 29.7 pg (27.9-34.1); MEAN CELL HEMOGLOBIN CONCENTR. 33.3 g/dL (32.4-36.7); MEAN CELL VOLUME 89.1 fL (81.5-99.8); MEAN PLATELET VOLUME 9.1 fL (8.7-11.7); PLATELET CLUMPS FLAG 0 (0-99); PLATELET COUNT 134 10^3/uL (150-400); RED BLOOD CELL COUNT 2.66 10^6/uL (4.40-6.38); RED CELL DISTRIBUTION WIDTH 19.2 % (11.5-15.2)
[2016-09-23] MEDS: HEPARIN 5,000 UNIT/0.5 ML SYR SC SCH (05:40)
[2016-09-23 06:00] LABS: ANION GAP 9 mEq/L (8-16); CALCIUM 6.5 mg/dL (8.5-10.4); CARBON DIOXIDE 19 mEq/l (22-31); CHLORIDE 106 mEq/L (97-110); CREATININE 1.3 mg/dL (0.7-1.3); GLOMERULAR FILTRATION RATE 55; GLUCOSE 81 mg/dL (70-100); MAGNESIUM 2.1 mg/dL (1.6-2.3); POTASSIUM 4.8 mEq/L (3.5-5.2); SODIUM 134 mEq/L (134-144)
[2016-09-23 08:20] VITALS: BP 115/61; PULSE 63; TEMP 98.2; O2SAT 94
[2016-09-23] MEDS ORDERED: SODIUM BICARBONATE PO SCH (09:00)
[2016-09-23] MEDS ORDERED: OMEPRAZOLE PO SCH (09:00)
[2016-09-23] MEDS: DRONABINOL 2.5 MG CAP PO SCH (09:43)
[2016-09-23] MEDS: predniSONE 5 MG TAB PO SCH (09:43)
[2016-09-23] MEDS: MULTIVITAMINS 1 EACH TAB PO SCH (09:43)
[2016-09-23] MEDS: morphINE SR 15 MG TAB PO SCH (09:43)
[2016-09-23] MEDS: CHOLECALCIFEROL VIT D3 1,000 UNITS TAB PO SCH (09:43)
[2016-09-23] MEDS: CYANO/VITAMIN B12 100 MCG TAB PO SCH (09:43)
[2016-09-23] MEDS: GLUCOSAMINE SULF 500 MG CAP PO SCH (09:43)
[2016-09-23] MEDS: DOCUSATE SODIUM 100 MG CAP PO SCH (09:43)
[2016-09-23] MEDS: ZEGERID OTC PO SCH (09:45)
[2016-09-23] MEDS: Enzalutamide [Xtandi] 160 MG PO SCH (09:45)
--- NOTE | 2016-09-23 10:08 | GDS ---
[f rep st] DISCHARGE SUMMARY DISCHARGE DIAGNOSES: 1. Acute weakness, characterized by shortness of breath and anorexia. 2. Acute kidney injury. 3. Anemia. 4. Metastatic prostate cancer, currently on chemo and radiation therapy. 5. History of coronary artery disease, status post CABG in 2013. 6. Type 2 diabetes mellitus. 7. History of atrial tachycardia. 8. Chronic pain with continuous opiate dependency. 9. Chronic hyponatremia. 10. History of chronic kidney disease, stage 3, with a baseline creatinine of 1.3 to 1.4. PROCEDURES: 09/21/2016 chest x-ray, which shows osteoblastic metastasis. BRIEF HISTORY: Please see dictated H and P by Dr. Hopson for complete details. In brief, the patien david is a 71-year-old male who has known metastatic prostate cancer. He noted 1 week ago he was hospita lized here for hip pain. Upon getting back to his home, he noted acute weakness, shortness of breath , and anorexia. He was admitted due to acute kidney injury noted on labs. He was treated for hypovo lemia with IV fluids, and his serum creatinine is back to his baseline. Additionally, he was noted t o be anemic and was given 1 unit of blood. His hemoglobin is currently stable. He is being discharg ed to home for outpatient followup. RESULTS PENDING: None. DIET: Per previous. ACTIVITY: As tolerated. DISCHARGE MEDICATIONS: Please see medication reconciliation for complete details. He is being disch arged on all his home medications that include amitriptyline, aspirin, atorvastatin, cholecalciferol, vitamin B12, docusate, Marinol, Xtandi, glucosamine, insulin glargine, metoprolol. His Alfonzo inhibito r has been held. This will not be resumed at the time of discharge. FOLLOWUP: Follow up with Dr. Starr as scheduled for Sunday. /[id number]/MODL
[2016-09-23] MEDS: POLYETHYLENE GLYCOL 3350 17 GM PKT PO SCH (10:09)
== END 2016-09-23 12:01 | disposition home or self-care (01) | DRG 683 ==
LOC: INTOOBSV 17:13 → F3E 18:23 → OBSVTOIN 09-22 15:40
PROVIDERS: ADMIT Internal Medicine; ATTEND Internal Medicine
PROC: 30233N1 Transfusion of Nonautologous Red Blood Cells into Peripheral Vein, Percutaneous Approach (ICD-10-PCS; principal; 2016-09-22)
DX: N17.9 Acute kidney failure, unspecified (principal); D63.1 Anemia in chronic kidney disease; D63.0 Anemia in neoplastic disease; E11.22 Type 2 diabetes mellitus with diabetic chronic kidney disease; N18.3 Chronic kidney disease, stage 3 (moderate); G89.29 Other chronic pain; F11.20 Opioid dependence, uncomplicated; E87.1 Hypo-osmolality and hyponatremia; C79.51 Secondary malignant neoplasm of bone; I25.10 Atherosclerotic heart disease of native coronary artery without angina pectoris; Z79.4 Long term (current) use of insulin; Z87.891 Personal history of nicotine dependence; Z85.46 Personal history of malignant neoplasm of prostate; Z92.3 Personal history of irradiation; Z95.1 Presence of aortocoronary bypass graft
CPT/HCPCS: 97161-GP; 97165-GO; 97535-GO; G0378; G8978-GP-CI; G8979-GP-CI; G8980-GP-CI; G8987-GO-CI; G8988-GO-CI; G8989-GO-CI; J1815; P9016